=== PATIENT | female | born 1950 | race Caucasian/White ===

== ENCOUNTER 2016-11-01 08:51 | Outpatient (CLI) | payer MEDICARE, OTHER | END 2016-11-01 08:52 | disposition home or self-care (01) | LOC: RT.S 08:51 | PROVIDERS: ATTEND Nurse Practitioner Family | DX: R07.89 Other chest pain (principal) | CPT/HCPCS: 93005 ==

== ENCOUNTER 2016-11-11 10:14 | Outpatient (CLI) | payer MEDICARE, OTHER ==
--- NOTE | 2016-11-12 15:25 | Mammography Report ---
DIGITAL SCREENING MAMMOGRAM: 11/11/2016 CLINICAL INDICATION: A 66-year-old, for screening. COMPARISON: 07/2013, 09/2008, 03/2007. TECHNIQUE: Routine CC and MLO projections were obtained of the breasts. FINDINGS: Parenchymal tissue within both breasts is heterogeneously dense, which may lower the sensi tivity of mammography; however, there are no dominant masses, suspicious microcalcifications, or seco ndary signs of malignancy. In comparison to the previous studies, there are no significant changes. ASSESSMENT: NO MAMMOGRAPHIC EVIDENCE OF MALIGNANCY. NO SIGNIFICANT INTERVAL CHANGES. RECOMMENDATION: Screening mammography is recommended annually. BIRADS category 1 - negative. STANDARD QUALIFYING STATEMENTS 1. This examination was reviewed with the aid of Computed-Aided Detection (CAD). 2. A negative or benign imaging report should not delay biopsy if clinically suspicious findings are present. Consider surgical consultation if warranted. More than 5% of cancers are not identified by i maging. 3. Dense breasts may obscure an underlying neoplasm. JOB #: [id number] EXT JOB #:[id number]
== END 2016-11-11 10:15 | disposition home or self-care (01) ==
LOC: DI.S 10:14
PROVIDERS: ATTEND Nurse Practitioner Family
DX: Z12.31 Encounter for screening mammogram for malignant neoplasm of breast (principal)
CPT/HCPCS: 77067

== ENCOUNTER 2018-08-10 07:49 | Day surgery (SDC) | payer MEDICARE, OTHER ==
[~2018-08-10 07:49] MED LIST: CYCLOPENTOLATE 1% OPHTH DROPS 2 ML ONE; KETOROLAC 0.45% OPHTH DROPS ONE; PHENYLEPHRINE 2.5% OPHTH 2 ML DROPS ONE; PROPARACAINE 0.5% OPHTH DROPS 15 ML ONE
[2018-08-10] MEDS ORDERED: CYCLOPENTOLATE 1% OPHTH DROPS 2 ML RIGHTEYE ONE (08:15)
[2018-08-10] MEDS ORDERED: PHENYLEPHRINE 2.5% OPHTH 2 ML DROPS RIGHTEYE ONE (08:15)
[2018-08-10] MEDS ORDERED: PROPARACAINE 0.5% OPHTH DROPS 15 ML RIGHTEYE ONE (08:15)
[2018-08-10] MEDS ORDERED: KETOROLAC 0.45% OPHTH DROPS RIGHTEYE ONE (08:15)
--- NOTE | 2018-08-10 08:25 | ANESTHESIA ---
Pre-Anesthesia VS, & Labs - Diagnosis Right senile combined cataract - Procedure Right phaco with IOL implant Vital Signs: Temp Pulse Resp BP Pulse Ox 36.3 C L 78 16 152/69 H 97 08/10/18 08:06 08/10/18 08:06 08/10/18 08:06 08/10/18 08:06 08/10/18 08:06 Height 5 ft 2.5 in Weight (kg) 86.2 kg - NPO >8 hours - Is Patient ?: No - Lab Results Lab results reviewed: No Home Medications and Allergies Home Medications: Ambulatory Orders Apixaban [Eliquis] 5 mg PO BID 08/09/18 Atorvastatin [Lipitor] 80 mg PO DAILY 08/09/18 Propranolol HCl [Innopran Xl] 120 mg PO DAILY 08/09/18 metFORMIN [Glucophage] 500 mg PO BIDWM 08/09/18 Apixaban [Eliquis] 5 mg PO BID 08/09/18 Atorvastatin [Lipitor] 80 mg PO DAILY 08/09/18 Propranolol HCl [Innopran Xl] 120 mg PO DAILY 08/09/18 metFORMIN [Glucophage] 500 mg PO BIDWM 08/09/18 Allergies/Adverse Reactions: Allergies Allergy/AdvReac Type Severity Reaction Status Date / Time erythromycin base Allergy Hives Verified 08/09/18 12:45 Sulfa (Sulfonamide Allergy Unknown Verified 08/09/18 12:45 Antibiotics) codeine AdvReac Nausea Verified 08/09/18 12:45 meperidine [From Demerol] AdvReac Nausea Verified 08/09/18 12:45 oxycodone AdvReac Nausea Verified 08/10/18 08:24 propoxyphene [From Darvon] AdvReac Unknown Verified 08/09/18 12:45 Anes History & Medical History - Anesthetic History Anesthesia Complications: reports: No previous complications Family history of Anesthesia Complications: Denies Family history of Malignant Hyperthermia: Denies - Medical History Cardiovascular: reports: High cholesterol Pulmonary: reports: Pneumonia Gastrointestinal: reports: None Urinary: reports: None, Other Neuro: reports: None Musculoskeletal: reports: Osteoarthritis Endocrine/Autoimmune: reports: Type 2 diabetes Blood Disorders: reports: None Skin: reports: None Smoking Status: Current every day smoker (Hx of 50 years of 1 ppd) Psychosocial: reports: No issues indicated - Surgical History General: Cholecystectomy Gynecologic: 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 Orthopedic: Knee replacement Exam General: Alert, Oriented x3 Dental: WNL, Dentures full Upper, Dentures full Lower Mouth Opening: Greater than 4 Fingerbreadths Neck Mobility: Normal Mallampati classification: II Thyromental Distance: 4-6 cm Respiratory: Lungs clear, No respiratory distress Cardiovascular: Regular rate Neurological: Normal speech, Other (History of benign tremors with anxiety) Cognitive Status: Within normal limits Plan Anesthesia Type: MAC Consent for Procedure(s) Verified and Reviewed: Yes Code Status: Attempt Resuscitation ASA classification: 2-Mild systemic disease Is this case an emergency?: No
[2018-08-10] MEDS ORDERED: LACTATED RINGERS 500 ML IV ONE (08:27)
[2018-08-10] MEDS ORDERED: MIDAZOLAM 2 MG/2 ML VIAL IVP ONE (09:00)
[2018-08-10] MEDS ORDERED: fentaNYL 100 MCG/2 ML VIAL IVP ONE (09:00)
[2018-08-10] MEDS ORDERED: BSS/LIDOCAINE/EPINEPHRINE 1 ML SYRINGE IO ONE ×2 (09:08)
[2018-08-10] MEDS ORDERED: VANCOMYCIN OPHTHALMI 8MG/0.8ML 8 MG/0.8 ML SYRINGE IO ONE ×2 (09:08)
[2018-08-10] MEDS ORDERED: CHONDR SULF/HYALURONATE SYRINGE IO ONE (09:08)
[2018-08-10] MEDS ORDERED: TIMOLOL 0.5% OPHTH DROPS OPTH ONE (09:08)
[2018-08-10] MEDS ORDERED: TRIAMCIN/MOXIFLOX OPHTHALMIC 0.6 ML VIAL IO ONE ×2 (09:08)
[2018-08-10] MEDS ORDERED: EPINEPHrine 1 MG/ML AMP IVP ONE (09:08)
[2018-08-10] MEDS ORDERED: BRIMONIDINE 0.2% OPHTH DROPS 5 ML OPTH ONE (09:08)
[2018-08-10 09:55] VITALS: BP 133/79
--- NOTE | 2018-08-10 10:52 | OPERATIVE REPORT ---
DATE OF SERVICE: 08/10/2018 Physician: Noe Godwin MD PREOPERATIVE DIAGNOSIS: Visually significant cataract, right eye. This was her first cataract surge ry. POSTOPERATIVE DIAGNOSIS: Visually significant cataract, right eye. This was her first cataract surg nargis. DESCRIPTION OF PROCEDURE: Phacoemulsification with posterior chamber intraocular lens implant, right eye. SURGEON: Noe Godwin MD ANESTHESIA: Monitored anesthesia care. COMPLICATIONS: None. OPERATIVE INDICATIONS: This is a 68-year-old woman with progressive vision loss in the right eye due to 3+ nuclear sclerotic, 2+ cortical and 3 to 4+ posterior subcapsular cataract. Best corrected vis ual acuity was 20/250, with glare to count fingers at 8 feet in the right eye. Indications for surge ry were overall decrease in vision, difficulty seeing words on the computer screen, difficulty readin g, difficulty seeing words, closed caption or game scores on TV, difficulty seeing street signs, and she does not drive. She was consented at length concerning risks and benefits of cataract surgery, a fter which she expressed a desire to proceed with surgery. OPERATIVE PROCEDURE: The patient was taken to OR #3 and placed under monitored anesthesia care. A s urgical timeout was conducted confirming the correct patient, correct procedure, and correct surgical site. She was given topical anesthesia, then prepped and draped in the usual sterile fashion. The eye was entered at the 12 and 9 o'clock positions. Intracameral Shugarcaine was injected into the an terior chamber, followed by Viscoat. A continuous-tear curvilinear capsulorrhexis was performed. Th e nucleus was hydrodissected and phacoemulsified. The cortex was evacuated using automated infusion and aspiration. Provisc was injected in the capsular bag, and a 26.5 diopter intraocular lens was in serted into the bag. Approximately 0.8 mL of a mixture of triamcinolone, moxifloxacin, and vancomyci n was injected subconjunctivally in the superior quadrant for infection and inflammation prophylaxis. I and A was used to evacuate the viscoelastic material. The eye was inflated to physiologic pressu re using balanced salt solution and found to be watertight. The patient was taken from the operating room in good condition and given postoperative instructions. TD: 08/10/2018 10:16
== END 2018-08-10 07:50 | disposition home or self-care (01) ==
LOC: SDS 07:49
PROVIDERS: ATTEND Ophthalmology
PROC: 08RJ3JZ Replacement of Right Lens with Synthetic Substitute, Percutaneous Approach (ICD-10-PCS; principal; 2018-08-10 09:00)
DX: E11.36 Type 2 diabetes mellitus with diabetic cataract (principal); I48.91 Unspecified atrial fibrillation; I10 Essential (primary) hypertension; F17.210 Nicotine dependence, cigarettes, uncomplicated; R25.1 Tremor, unspecified; E78.00 Pure hypercholesterolemia, unspecified; Z79.01 Long term (current) use of anticoagulants; Z79.84 Long term (current) use of oral hypoglycemic drugs; Z87.01 Personal history of pneumonia (recurrent)
CPT/HCPCS: 66984; A9270; J3490; V2632

== ENCOUNTER 2018-09-14 06:14 | Day surgery (SDC) | payer MEDICARE, OTHER ==
[2018-09-14] MEDS ORDERED: KETOROLAC 0.45% OPHTH DROPS ONE (06:34)
[2018-09-14] MEDS ORDERED: CYCLOPENTOLATE 1% OPHTH DROPS 2 ML ONE (06:34)
[2018-09-14] MEDS ORDERED: PHENYLEPHRINE 2.5% OPHTH 2 ML DROPS ONE (06:34)
[2018-09-14] MEDS ORDERED: PROPARACAINE 0.5% OPHTH DROPS 15 ML ONE (06:35)
[2018-09-14] MEDS ORDERED: CYCLOPENTOLATE 1% OPHTH DROPS 2 ML LEFTEYE ONE (06:40)
[2018-09-14] MEDS ORDERED: PHENYLEPHRINE 2.5% OPHTH 2 ML DROPS LEFTEYE ONE (06:40)
[2018-09-14] MEDS ORDERED: KETOROLAC 0.45% OPHTH DROPS LEFTEYE ONE (06:40)
[2018-09-14] MEDS ORDERED: PROPARACAINE 0.5% OPHTH DROPS 15 ML LEFTEYE ONE ×2 (06:40→07:37)
[2018-09-14] MEDS ORDERED: BRIMONIDINE 0.2% OPHTH DROPS 5 ML ONE (07:04)
[2018-09-14] MEDS ORDERED: TRIAMCIN/MOXIFLOX OPHTHALMIC 0.6 ML VIAL IO ONE ×2 (07:04→07:38)
[2018-09-14] MEDS ORDERED: TIMOLOL 0.5% OPHTH DROPS ONE (07:04)
[2018-09-14] MEDS ORDERED: VANCOMYCIN OPHTHALMI 8MG/0.8ML 8 MG/0.8 ML SYRINGE IO ONE ×2 (07:05→07:37)
[2018-09-14] MEDS ORDERED: BSS/LIDOCAINE/EPINEPHRINE 1 ML SYRINGE ONE (07:05)
--- NOTE | 2018-09-14 07:10 | ANESTHESIA ---
Pre-Anesthesia VS, & Labs - Diagnosis LEft eye senile combined cataract - Procedure Left eye cataract extraction with IOL Vital Signs: Temp Pulse Resp BP Pulse Ox 36.6 C 67 18 136/89 H 97 09/14/18 06:32 09/14/18 06:32 09/14/18 06:32 09/14/18 06:32 09/14/18 06:32 Height 5 ft 2 in Weight (kg) 85 kg - NPO >8 hours - Is Patient ?: No - Lab Results Current Lab Results: Laboratory Tests 09/14/18 06:52: POC Whole Bld Glucose 145 H Home Medications and Allergies Apixaban [Eliquis] 5 mg PO BID 08/09/18 Atorvastatin [Lipitor] 80 mg PO DAILY 08/09/18 Propranolol HCl [Innopran Xl] 120 mg PO DAILY 08/09/18 metFORMIN [Glucophage] 500 mg PO BIDWM 08/09/18 Allergies/Adverse Reactions: Allergies Allergy/AdvReac Type Severity Reaction Status Date / Time erythromycin base Allergy Hives Verified 08/09/18 12:45 Sulfa (Sulfonamide Allergy Unknown Verified 08/09/18 12:45 Antibiotics) codeine AdvReac Nausea Verified 08/09/18 12:45 meperidine [From Demerol] AdvReac Nausea Verified 08/09/18 12:45 oxycodone AdvReac Nausea Verified 08/10/18 08:24 propoxyphene [From Darvon] AdvReac Unknown Verified 08/09/18 12:45 Anes History & Medical History - Anesthetic History Anesthesia Complications: reports: No previous complications - Medical History Cardiovascular: reports: High cholesterol, Atrial fibrillation (patient stated she had an irregular heart beat and was told to be on a blood thinner) Pulmonary: reports: None Gastrointestinal: reports: None Urinary: reports: None Neuro: reports: None Musculoskeletal: reports: Osteoarthritis Endocrine/Autoimmune: reports: Type 2 diabetes Blood Disorders: reports: None Skin: reports: None Smoking Status: Current every day smoker (Hx of 50 years of 1 ppd) Psychosocial: reports: No issues indicated - Surgical History General: Cholecystectomy Gynecologic: 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 Orthopedic: Knee replacement Exam General: Alert, Oriented x3, Cooperative, No acute distress Dental: Dentures full Upper, Dentures full Lower Mouth Openin Fingerbreadth Neck Mobility: Normal Mallampati classification: II Thyromental Distance: 4-6 cm Respiratory: Lungs clear, Normal breath sounds, No respiratory distress, No accessory muscle use Cardiovascular: Regular rate, Normal S1, Normal S2, No murmurs Mental/Cognitive Status: Alert/Oriented X3, Normal for patient Plan Anesthesia Type: MAC Consent for Procedure(s) Verified and Reviewed: Yes Code Status: Attempt Resuscitation ASA classification: 2-Mild systemic disease Is this case an emergency?: No
[2018-09-14] MEDS ORDERED: LACTATED RINGERS 500 ML IV ONE (07:27)
[2018-09-14] MEDS ORDERED: BRIMONIDINE 0.2% OPHTH DROPS 5 ML OPTH ONE (07:36)
[2018-09-14] MEDS ORDERED: CHONDR SULF/HYALURONATE SYRINGE IO ONE (07:36)
[2018-09-14] MEDS ORDERED: EPINEPHrine 1 MG/ML AMP IVP ONE (07:36)
[2018-09-14] MEDS ORDERED: BSS/LIDOCAINE/EPINEPHRINE 1 ML SYRINGE IO ONE (07:37)
[2018-09-14] MEDS ORDERED: TIMOLOL 0.5% OPHTH DROPS OPTH ONE (07:37)
[2018-09-14] MEDS ORDERED: fentaNYL 100 MCG/2 ML VIAL IVP ONE (07:57)
[2018-09-14] MEDS ORDERED: MIDAZOLAM 2 MG/2 ML VIAL IVP ONE (07:57)
[2018-09-14 08:07] VITALS: BP 109/46
--- NOTE | 2018-09-14 08:35 | OPERATIVE REPORT ---
DATE OF SERVICE: 09/14/2018 Physician: Noe Godwin MD PREOPERATIVE DIAGNOSIS: Visually significant cataract, left eye. Cataract surgery was performed on the right eye on 09/09/2018. POSTOPERATIVE DIAGNOSIS: Visually significant cataract, left eye. Cataract surgery was performed on the right eye on 09/09/2018. PROCEDURE: Phacoemulsification with posterior chamber intraocular lens implant, left eye. SURGEON: Noe Godwin MD ANESTHESIA: Monitored anesthesia care. COMPLICATIONS: None. OPERATIVE INDICATIONS: This is a 64-year-old woman with progressive vision loss in the left eye due to 1+ nuclear sclerotic, 1+ cortical and trace posterior subcapsular cataract. Best corrected visual acuity was 20/30 with glare to 20/100 in the left eye. Indications for surgery are overall decrease in vision, difficulty reading, difficulty driving in low light or at night and difficulty with glare and bright lights in any situation. She was consented at length concerning risks and benefits of cataract surgery, after which she expressed a desire to proceed with surgery. OPERATIVE PROCEDURE: Patient was taken into OR #3 and placed under monitored anesthesia care. A surgical timeout was conducted confirming the correct patient, correct procedure, and correct surgical site. She was given topical anesthesia, and then prepped and draped in the usual sterile fashion. The eye was entered at the 6 and 3-o'clock positions. Intracameral Shugarcaine was injected into the anterior chamber, followed by Viscoat. A continuous-tear curvilinear capsulorrhexis was performed. The nucleus was hydrodissected and phacoemulsified. The cortex was evacuated using the automated infusion and aspiration. Provisc was injected in the capsular bag, and a 25.0-diopter intraocular lens was inserted into the bag. Approximately 0.8 mL of a mixture of triamcinolone, moxifloxacin and vancomycin was injected subconjunctivally in the superior quadrant for infection and inflammation prophylaxis. I and A was used to evacuate the viscoelastic material. The eye was inflated to physiologic pressure using balanced salt solution and found to be watertight. The patient was taken from the operating room in good condition and given postoperative instructions. TD: 09/14/2018 08:07 [facility]ENTER[facility]
== END 2018-09-14 06:15 | disposition home or self-care (01) ==
LOC: SDS 06:14
PROVIDERS: ATTEND Ophthalmology
PROC: 08RK3JZ Replacement of Left Lens with Synthetic Substitute, Percutaneous Approach (ICD-10-PCS; principal; 2018-09-14 07:30)
DX: E11.36 Type 2 diabetes mellitus with diabetic cataract (principal); I48.91 Unspecified atrial fibrillation; I10 Essential (primary) hypertension; E78.00 Pure hypercholesterolemia, unspecified; R25.1 Tremor, unspecified; F17.210 Nicotine dependence, cigarettes, uncomplicated; Z96.652 Presence of left artificial knee joint; Z79.01 Long term (current) use of anticoagulants; Z79.84 Long term (current) use of oral hypoglycemic drugs
CPT/HCPCS: 66984; A9270; J3490; J7120; V2632

== ENCOUNTER 2019-02-19 17:31 | Emergency (ER) | payer MEDICARE, OTHER ==
[2019-02-19] MEDS ORDERED: levoFLOXacin 750 MG/150 ML 750 MG/150 ML BAG IV STA (18:04)
--- NOTE | 2019-02-19 18:06 | ED Physician Documentation ---
PD HPI CHEST PAIN - Stated complaint Stated Complaint: CP - Chief complaint Chief Complaint: Cardiac - History obtained from History obtained from: Patient - History of Present Illness Timing - onset: Other (6-year-old woman was in the [place] got [place]. Started with epigastric pain and then made its way to chest pain with a nonproductive cough and she just feels sore and tired all over as well as short of breath. Of note she is to be on some sort of blood thinner, she says it was for anxiety. She is not specifically sure why she was on a blood thinner but seems convinced that it was for anxiety. She is not on it anymore.) Review of Systems Ten Systems: 10 systems reviewed and negative Constitutional: reports: Chills, Fatigue. denies: Fever Throat: denies: Sore throat Cardiac: reports: Chest pain / pressure. denies: Palpitations, Pedal edema, Calf pain Respiratory: reports: Dyspnea, Cough PD PAST MEDICAL HISTORY - Past Medical History Cardiovascular: High cholesterol, Atrial fibrillation (patient stated she had an irregular heart beat and was told to be on a blood thinner) Respiratory: None Neuro: None Endocrine/Autoimmune: Type 2 diabetes GI: None : None HEENT: None Psych: None Musculoskeletal: Osteoarthritis Derm: None - Past Surgical History General: Cholecystectomy Ortho: Knee replacement /[employer]: 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 - Present Medications Home Medications: Ambulatory Orders Medication Instructions Recorded Confirmed Atorvastatin [Lipitor] 80 mg PO DAILY 08/09/18 09/14/18 Propranolol HCl [Innopran Xl] 120 mg PO DAILY 08/09/18 09/14/18 metFORMIN [Glucophage] 500 mg PO BIDWM 08/09/18 09/14/18 Levofloxacin [Levaquin] 750 mg PO DAILY #7 tablet 02/19/19 - Allergies Allergies/Adverse Reactions: Allergies Allergy/AdvReac Type Severity Reaction Status Date / Time erythromycin base Allergy Hives Verified 02/19/19 17:40 Sulfa (Sulfonamide Allergy Unknown Verified 02/19/19 17:40 Antibiotics) codeine AdvReac Nausea Verified 02/19/19 17:40 meperidine [From Demerol] AdvReac Nausea Verified 02/19/19 17:40 oxycodone AdvReac Nausea Verified 02/19/19 17:40 propoxyphene [From Darvon] AdvReac Unknown Verified 02/19/19 17:40 - Social History Smoking Status: Current every day smoker (Hx of 50 years of 1 ppd) PD ED PE NORMAL - Vitals Vital signs reviewed: Yes - General General: Alert and oriented X 3, No acute distress - HEENT HEENT: PERRL, EOMI - Neck Neck: Supple, no meningeal sign, No bony TTP - Cardiac Cardiac: RRR, No murmur - Respiratory Respiratory: No respiratory distress, Other (Diminished throughout without focal findings, nonlabored) - Abdomen Abdomen: Non tender - Extremities Extremities: No edema, No calf tenderness / cord - Neuro Neuro: Alert and oriented X 3, Normal speech Results - Vitals Vitals: Vital Signs - 24 hr 02/19/19 02/19/19 02/19/19 17:38 18:04 18:14 Temperature 37.1 C 37 C Heart Rate 90 89 77 Respiratory 20 20 24 Rate Blood Pressure 122/58 L 121/62 102/64 O2 Saturation 90 L 93 94 02/19/19 18:34 Temperature Heart Rate 78 Respiratory 22 Rate Blood Pressure 96/52 L O2 Saturation 93 Oxygen O2 Source Room air - EKG (time done) 1741 Rate: Rate (enter#) (86) Rhythm: NSR [place]: Normal Intervals: Normal SC QRS: Normal Ischemia: Non specific changes (Minimal, submillimeter lateral ST depression without other reciprocal changes, no ST elevation.) - Labs Labs: Laboratory Tests 02/19/19 02/19/19 02/19/19 18:11 18:15 18:15 WBC 9.7 RBC 4.67 Hgb 14.2 Hct 42.7 MCV 91.4 MCH 30.4 MCHC 33.3 RDW 14.4 Plt Count 167 MPV 10.8 Neut # (Auto) 8.0 H Lymph # (Auto) 0.8 L [place] # (Auto) 0.4 Eos # (Auto) 0.0 Baso # (Auto) 0.1 Absolute Nucleated RBC 0.00 Nucleated RBC % 0.0 Sodium 143 Potassium 3.2 L Chloride 103 Carbon Dioxide 25 Anion Gap 15.0 H BUN 39 H Creatinine 1.8 H Estimated GFR (MDRD) 28 L Glucose 164 H Lactic Acid 1.2 Calcium 9.2 Total Bilirubin 1.4 H AST 50 H ALT 40 Alkaline Phosphatase 97 Total Protein 7.4 Albumin 3.0 L Globulin 4.4 H Albumin/Globulin Ratio 0.7 L Lipase 32 - Rads (name of study) CXR Radiology: EMP read contemporaneously CT PA Radiology: EMP read contemporaneously PD MEDICAL DECISION MAKING - ED course ED course: 69-year-old woman who presents with chest pain, cough, shortness of breath. Initial x-ray noted, was worried this might be a wedge so was followed with CT given the history of noncompliance with anticoagulation for unclear reasons and recent travel, but lobar pneumonia was confirmed treated with levofloxacin. 2 L of fluids. Departure - Departure Disposition: Home, Self Care Clinical Impression: Pneumonia Qualifiers: Pneumonia type: due to unspecified organism Laterality: right Lung location: upper lobe of lung Qualified Code(s): J18.1 - Lobar pneumonia, unspecified organism Condition: Good Record reviewed to determine appropriate education?: Yes Instructions: ED Pneumonia Adult Prescriptions: Levofloxacin [Levaquin] 750 mg PO DAILY #7 tablet Comments: Follow-up with your doctor the end of the week, but drink plenty of fluids, return for new or worsening symptoms.
[2019-02-19 18:26] LABS: BASOPHILS # (AUTO) 0.1 10^3/uL (0.0-0.1); BASOPHILS % (AUTO) 0.5 %; EOSINOPHILS % (AUTO) 0.1 %; HGB - HEMOGLOBIN 14.2 g/dL (12.0-16.0); LYMPHOCYTES # (AUTO) 0.8 10^3/uL (1.5-3.5); LYMPHOCYTES % (AUTO) 8.1 %; MEAN CORPUSCULAR HEMOGLOBIN 30.4 pg (27.0-31.0); MEAN CORPUSCULAR HGB CONC 33.3 g/dL (32.0-36.0); MEAN CORPUSCULAR VOLUME 91.4 fL (81.0-99.0); MEAN PLATELET VOLUME 10.8 fL (7.9-10.8); MONOCYTES # (AUTO) 0.4 10^3/uL (0.0-1.0); MONOCYTES % (AUTO) 3.9 %; NEUTROPHILS % (AUTO) 82.8 %; PLT - PLATELET COUNT 167 10^3/uL (130-450); RED BLOOD COUNT 4.67 10^6/uL (4.20-5.40); RED CELL DISTRIBUTION WIDTH 14.4 % (12.0-15.0); WHITE BLOOD COUNT 9.7 x10^3/uL (4.8-10.8)
[2019-02-19 18:35] LABS: ALBUMIN/GLOBULIN RATIO 0.7 (1.0-2.2); BILIRUBIN,TOTAL 1.4 mg/dL (0.2-1.0); CALCIUM 9.2 mg/dL (8.5-10.3); CREATININE 1.8 mg/dL (0.4-1.0); TOTAL PROTEIN 7.4 g/dL (6.7-8.2)
--- NOTE | 2019-02-19 18:35 | XRAY Report ---
Reason: chest pain Procedure Date: 02/19/2019 Accession Number: [id number] / [id number] Procedure: XR - Chest 1 View X-Ray CPT Code: 70915 Final Report FULL RESULT: EXAM: CHEST RADIOGRAPHY EXAM DATE: 02/19/2019 05:59 PM. CLINICAL HISTORY: Chest pain. COMPARISON: 10/29/2013 3:47 PM. TECHNIQUE: 1 view. FINDINGS: Lungs/Pleura: There is new airspace disease in the lateral right midlung. There is a calcified structure overlying the lower left hilum which is unchanged. Right midlung calcification unchanged. Lung volumes are normal. Negative for pneumothorax. Mediastinum: The heart size is normal. There is aortic atherosclerotic calcification. Other: None. IMPRESSION: 1. New peripheral consolidation in right midlung. Suspicious for pneumonia. RADIA
[2019-02-19] MEDS ORDERED: IOVERSOL 320 100 ML VIAL IVP ONE ×2 (18:39→19:07)
[2019-02-19] MEDS ORDERED: SODIUM CHLORIDE 0.9% 1,000 ML IV ONE (18:45)
[2019-02-19] MEDS ORDERED: LACTATED RINGERS 1,000 ML IV STA (19:28)
--- NOTE | 2019-02-19 19:46 | CT Report ---
Reason: dyspnea Procedure Date: 02/19/2019 Accession Number: [id number] / [id number] Procedure: CT - ANGIO CHEST W/WO CPT Code: Final Report FULL RESULT: EXAM: CT ANGIOGRAM CHEST EXAM DATE: 02/19/2019 07:02 PM. CLINICAL HISTORY: Dyspnea. A value for pulmonary embolism. COMPARISON: CHEST 1 VIEW 02/19/2019 5:49 PM 10/29/2013 3:47 PM. TECHNIQUE: Routine helical imaging was performed through the chest in the pulmonary arterial phase. IV Contrast: 80 cc Optiray 320. Reconstructions: Coronal 3-D MIP reconstructions.Sagittal and coronal. In accordance with CT protocol optimization, one or more of the following dose reduction techniques were utilized for this exam: automated exposure control, adjustment of mA and/or KV based on patient size, or use of iterative reconstructive technique. FINDINGS: Diagnostic quality: Suboptimal secondary to lower lobe motion artifact. Pulmonary embolism: No pulmonary embolism to the segmental level. Right heart strain: None Pulmonary arteries: Normal in caliber. Heart: Unremarkable Aorta: Normal in caliber with moderate atherosclerosis. Central airways: Right upper lobe air bronchograms with bronchial wall thickening. Lung parenchyma: Right upper lobe consolidation. Scattered calcified granuloma seen in the bilateral lower lobes. Pleural effusion: None Pneumothorax: None Adenopathy: Right hilar lymphadenopathy. Imaged abdomen: Cholecystectomy. Sidewalls: Unremarkable Bones: No suspicious osseous lesions. IMPRESSION: 1. Suboptimal secondary to lower lobe motion artifact. 2. No pulmonary embolism to the segmental level. 3. Again large focus of consolidation with air bronchograms in the right upper lobe and right hilar lymphadenopathy consistent with lobar pneumonia. RADIA
[2019-02-19 22:21] VITALS: BP 122/58
== END 2019-02-19 22:28 | disposition home or self-care (01) ==
LOC: ED 17:31
DX: J18.1 Lobar pneumonia, unspecified organism (principal); E78.00 Pure hypercholesterolemia, unspecified; E11.8 Type 2 diabetes mellitus with unspecified complications; Z79.84 Long term (current) use of oral hypoglycemic drugs; Z96.659 Presence of unspecified artificial knee joint; F17.200 Nicotine dependence, unspecified, uncomplicated
CPT/HCPCS: 36415; 71045; 71275; 80053; 83605; 83690; 85025; 87040; 87077; 87181; 93005; 96361; 96365; 99283; 99284; J7120; Q9967

== ENCOUNTER 2019-04-02 10:24 | Outpatient (CLI) | payer MEDICARE, OTHER ==
--- NOTE | 2019-04-03 10:14 | XRAY Report ---
Reason: LOBAR PNEUMONIA, UNSPECIFIED ORGANISM Procedure Date: 04/02/2019 Accession Number: [id number] / [id number] Procedure: XRS - Chest 2 View X-Ray CPT Code: 60496 Final Report FULL RESULT: EXAM: CHEST RADIOGRAPHY EXAM DATE: 04/02/2019 10:35 AM. CLINICAL HISTORY: LOBAR PNEUMONIA, UNSPECIFIED ORGANISM. COMPARISON: CHEST 1 VIEW 02/19/2019 5:49 PM CHEST ANGIO 02/19/2019 6:55 PM. TECHNIQUE: 2 views. FINDINGS: Lungs/Pleura: Interval resolution of right midlung opacity. No new focal opacities. Stable pulmonary granulomas, largest in left perihilar region. No pleural effusion. No pneumothorax. Normal volumes. Mediastinum: Heart and mediastinal contours are unremarkable. Mild atherosclerosis at aortic arch. Other: None. IMPRESSION: 1. Resolution of consolidation in right midlung compared to prior imaging of 02/19/2019. No new focal airspace disease. 2. Stable pulmonary granulomas. RADIA
== END 2019-04-02 10:25 | disposition home or self-care (01) ==
LOC: DI.S 10:24
PROVIDERS: ATTEND Nurse Practitioner Family
DX: J18.1 Lobar pneumonia, unspecified organism (principal)
CPT/HCPCS: 71046

== ENCOUNTER 2020-01-24 22:27 | Emergency (ER) | payer MEDICARE, OTHER ==
--- NOTE | 2020-01-24 22:32 | ED Physician Documentation ---
History of Present Illness - Stated complaint Stated Complaint: CHEST PX - History obtained from History obtained from: Patient - Additonal information Additional information: Patient is a 70-year-old female presents with left arm pain as well as bilateral leg pain. Patient is concerned that she could have a deep vein thrombosis denies any history of PE or DVT denies fevers or hemoptysis. She does have a history of hypertension hyperlipidemia and diabetes.Denies any history of HI or stroke. Review of Systems Constitutional: reports: Reviewed and negative Eyes: reports: Reviewed and negative Ears: reports: Reviewed and negative Nose: reports: Reviewed and negative Throat: reports: Reviewed and negative Cardiac: reports: Other (Left arm pain) Respiratory: reports: Reviewed and negative GI: reports: Reviewed and negative : reports: Reviewed and negative Skin: reports: Reviewed and negative Musculoskeletal: reports: Other (Bilateral leg cramping) Neurologic: reports: Reviewed and negative Psychiatric: reports: Reviewed and negative Endocrine: reports: Reviewed and negative Immunocompromised: reports: Reviewed and negative PD PAST MEDICAL HISTORY - Past Medical History Cardiovascular: High cholesterol, Atrial fibrillation (patient stated she had an irregular heart beat and was told to be on a blood thinner) Respiratory: None Neuro: None Endocrine/Autoimmune: Type 2 diabetes GI: None : None HEENT: None Psych: None Musculoskeletal: Osteoarthritis Derm: None - Past Surgical History General: Cholecystectomy 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: 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 - Present Medications Home Medications: Ambulatory Orders Medication Instructions Recorded Confirmed Atorvastatin [Lipitor] 80 mg PO DAILY 08/09/18 09/14/18 Propranolol HCl [Innopran Xl] 120 mg PO DAILY 08/09/18 01/25/20 metFORMIN [Glucophage] 500 mg PO BIDWM 08/09/18 01/25/20 levoFLOXacin [Levaquin] 750 mg PO DAILY #7 tablet 02/19/19 Benzonatate 100 mg PO DAILY 01/25/20 01/25/20 Lisinopril [Prinivil] 5 mg PO DAILY 01/25/20 01/25/20 Magnesium Oxide 400 mg PO DAILY 01/25/20 01/25/20 - Allergies Allergies/Adverse Reactions: Allergies Allergy/AdvReac Type Severity Reaction Status Date / Time erythromycin base Allergy Hives Verified 01/24/20 22:37 Sulfa (Sulfonamide Allergy Unknown Verified 01/24/20 22:37 Antibiotics) codeine AdvReac Nausea Verified 01/24/20 22:37 meperidine [From Demerol] AdvReac Nausea Verified 01/24/20 22:37 oxycodone AdvReac Nausea Verified 01/24/20 22:37 propoxyphene [From Darvon] AdvReac Unknown Verified 01/24/20 22:37 - Social History Does the pt smoke?: Yes Smoking Status: Current every day smoker (Hx of 50 years of 1 ppd) Does the pt have substance abuse?: No - Immunizations Immunizations are current?: Yes - POLST Patient has POLST: No PD ED PE NORMAL - Vitals Vital signs reviewed: Yes - General General: Alert and oriented X 3, No acute distress, Well developed/nourished - HEENT HEENT: Atraumatic, PERRL, Ears normal, Moist mucous membranes, Pharynx benign, Dentition benign - Neck Neck: Supple, no meningeal sign, No adenopathy, Thyroid normal, No JVD, No bruit - Cardiac Cardiac: RRR, No murmur, No gallop, Strong equal pulses - Respiratory Respiratory: No respiratory distress, Clear bilaterally - Abdomen Abdomen: Normal bowel sounds, Soft, Non tender, Non distended, No organomegaly - Female Female : Deferred - Rectal Rectal: Deferred - Back Back: No CVA TTP, No spinal TTP - Derm Derm: Normal color, Warm and dry, No rash - Extremities Extremities: No deformity, Normal ROM s pain, No edema, No calf tenderness / cord, Other (Both legs are diffusely tender to palpation however compartments are soft negative for edema negative Homans sign no leg length discrepancy no crepitus or rashes or lesions noted) - Neuro Neuro: Alert and oriented X 3, 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 2-12 intact, No motor deficit, No sensory deficit, Normal speech - Psych Psych: Normal mood, Normal affect Results - Vitals Vitals: Vital Signs - 24 hr 01/24/20 01/25/20 01/25/20 22:30 00:32 02:33 Temperature 36.7 C Heart Rate 76 74 63 Respiratory 18 20 18 Rate Blood Pressure 179/107 H 146/62 H O2 Saturation 98 96 95 01/25/20 01/25/20 04:35 05:29 Temperature Heart Rate 52 L 48 L Respiratory 16 16 Rate Blood Pressure 99/63 116/43 L O2 Saturation 99 96 Oxygen O2 Source Room air - EKG (time done) 22:31 Rate: Other (no stemi) 00:30 Rate: Other (NO STEMI) - Labs Labs: Laboratory Tests 01/24/20 01/24/20 01/24/20 23:26 23:26 23:26 WBC 7.6 RBC 4.34 Hgb 13.5 Hct 40.8 MCV 94.0 MCH 31.1 H MCHC 33.1 RDW 13.6 Plt Count 161 MPV 10.5 Neut # (Auto) 4.2 Lymph # (Auto) 2.4 [place] # (Auto) 0.6 Eos # (Auto) 0.2 Baso # (Auto) 0.1 Absolute Nucleated RBC 0.00 Nucleated RBC % 0.0 PT 10.8 INR 1.0 APTT 25.4 D-Dimer 382.4 H Anti-Xa Level Sodium 139 Potassium 4.1 Chloride 104 Carbon Dioxide 27 Anion Gap 8.0 BUN 23 H Creatinine 0.8 Estimated GFR (MDRD) 71 L Glucose 154 H Calcium 8.6 Total Bilirubin 0.7 AST 23 ALT 24 Alkaline Phosphatase 110 Total Creatine Kinase 51 Troponin I High Sens B-Natriuretic Peptide Total Protein 6.1 L Albumin 3.5 Globulin 2.6 Albumin/Globulin Ratio 1.3 Lipase 37 Urine Color Urine Clarity Urine pH Ur Specific [place] Urine Protein Urine Glucose (UA) Urine Ketones Urine Occult Blood Urine Nitrite Urine Bilirubin Urine Urobilinogen Ur Leukocyte Esterase Urine RBC Urine WBC Ur Squamous Epith Cells Urine Bacteria Ur Microscopic Review Urine Culture Comments Ethyl Alcohol < 5.0 01/24/20 01/24/20 01/25/20 23:26 23:26 00:04 WBC RBC Hgb Hct MCV MCH MCHC RDW Plt Count MPV Neut # (Auto) Lymph # (Auto) [place] # (Auto) Eos # (Auto) Baso # (Auto) Absolute Nucleated RBC Nucleated RBC % PT INR APTT D-Dimer Anti-Xa Level Sodium Potassium Chloride Carbon Dioxide Anion Gap BUN Creatinine Estimated GFR (MDRD) Glucose Calcium Total Bilirubin AST ALT Alkaline Phosphatase Total Creatine Kinase Troponin I High Sens 68.7 H* B-Natriuretic Peptide 34 Total Protein Albumin Globulin Albumin/Globulin Ratio Lipase Urine Color YELLOW Urine Clarity HAZY Urine pH 5.0 Ur Specific [place] >=1.030 H Urine Protein NEGATIVE Urine Glucose (UA) NEGATIVE Urine Ketones TRACE Urine Occult Blood TRACE-INTA Urine Nitrite POSITIVE H Urine Bilirubin NEGATIVE Urine Urobilinogen 0.2 (NORMAL) Ur Leukocyte Esterase TRACE H Urine RBC 6-10 H Urine WBC 6-10 H Ur Squamous Epith Cells MOD Squamous H Urine Bacteria Moderate H Ur Microscopic Review INDICATED Urine Culture Comments NOT INDICATED Ethyl Alcohol 01/25/20 01/25/20 00:31 04:15 WBC RBC Hgb Hct MCV MCH MCHC RDW Plt Count MPV Neut # (Auto) Lymph # (Auto) [place] # (Auto) Eos # (Auto) Baso # (Auto) Absolute Nucleated RBC Nucleated RBC % PT INR APTT D-Dimer Anti-Xa Level 1.2 H* Sodium Potassium Chloride Carbon Dioxide Anion Gap BUN Creatinine Estimated GFR (MDRD) Glucose Calcium Total Bilirubin AST ALT Alkaline Phosphatase Total Creatine Kinase Troponin I High Sens 67.9 H* B-Natriuretic Peptide Total Protein Albumin Globulin Albumin/Globulin Ratio Lipase Urine Color Urine Clarity Urine pH Ur Specific [place] Urine Protein Urine Glucose (UA) Urine Ketones Urine Occult Blood Urine Nitrite Urine Bilirubin Urine Urobilinogen Ur Leukocyte Esterase Urine RBC Urine WBC Ur Squamous Epith Cells Urine Bacteria Ur Microscopic Review Urine Culture Comments Ethyl Alcohol PD MEDICAL DECISION MAKING - ED course Complexity details: reviewed old records, reviewed results, re-evaluated patient, considered differential (acs, pe, nstemi), d/w patient, d/w family, d/w job service consultant (dr. barba hospitalist. unable to accept here unable to stress and no cardiology.) ED course: ekg shows no stemis. elevated troponin x 2. left arm pain. htn. hld.diabetic. heparin ordered bolus and drip. unable to admit here at [facility]. contacte d multiple hospitals for transfer no beds available. patient signed out at shift change to dr chantale martinez. - Consults Consults: Discussed case with (dr. meng, limousine rental clerk. at [facility], will accept. ) Departure - Departure Disposition: 02 Transfer Acute Care Hosp Clinical Impression: NSTEMI (non-ST elevated myocardial infarction) Condition: Stable
[2020-01-24] MEDS ORDERED: SODIUM CHLORIDE 0.9% 1,000 ML IV STA (22:35)
[2020-01-24] MEDS ORDERED: ASPIRIN 325 MG TABLET PO STA (22:35)
[2020-01-24] MEDS ORDERED: ONDANSETRON 4 MG/2 ML VIAL IVP STA (22:35)
[2020-01-24] MEDS ORDERED: NITROGLYCERIN SL 0.4 MG TABLET SL PRN (22:35)
[2020-01-24] MEDS ORDERED: MORPHINE 2 MG/ML CARPUJECT IVP STA (22:35)
[2020-01-24 23:29] LABS: BASOPHILS # (AUTO) 0.1 10^3/uL (0.0-0.1); BASOPHILS % (AUTO) 0.8 %; EOSINOPHILS # (AUTO) 0.2 10^3/uL (0.0-0.7); HGB - HEMOGLOBIN 13.5 g/dL (12.0-16.0); LYMPHOCYTES # (AUTO) 2.4 10^3/uL (1.5-3.5); LYMPHOCYTES % (AUTO) 31.5 %; MEAN CORPUSCULAR HEMOGLOBIN 31.1 pg (27.0-31.0); MEAN CORPUSCULAR HGB CONC 33.1 g/dL (32.0-36.0); MEAN PLATELET VOLUME 10.5 fL (7.9-10.8); MONOCYTES # (AUTO) 0.6 10^3/uL (0.0-1.0); MONOCYTES % (AUTO) 8.3 %; NEUTROPHILS # (AUTO) 4.2 10^3/uL (1.5-6.6); NEUTROPHILS % (AUTO) 55.6 %; PLT - PLATELET COUNT 161 10^3/uL (130-450); RED BLOOD COUNT 4.34 10^6/uL (4.20-5.40); RED CELL DISTRIBUTION WIDTH 13.6 % (12.0-15.0); WHITE BLOOD COUNT 7.6 x10^3/uL (4.8-10.8)
[2020-01-24 23:35] LABS: PT - PROTHROMBIN TIME 10.8 secs (9.9-12.6)
[2020-01-24 23:42] LABS: ALBUMIN 3.5 g/dL (3.2-5.5); ALBUMIN/GLOBULIN RATIO 1.3 (1.0-2.2); ALKALINE PHOSPHATASE 110 IU/L (42-121); ALT ALANINE AMINOTRANSFERASE 24 IU/L (10-60); AST ASPARTATE AMINOTRANSFERASE 23 IU/L (10-42); BILIRUBIN,TOTAL 0.7 mg/dL (0.2-1.0); BUN - BLOOD UREA NITROGEN 23 mg/dL (6-20); CALCIUM 8.6 mg/dL (8.5-10.3); CARBON DIOXIDE - CO2 27 mmol/L (21-32); CHLORIDE 104 mmol/L (101-111); CK- CREATINE KINASE 51 IU/L (22-269); CREATININE 0.8 mg/dL (0.4-1.0); GLUCOSE 154 mg/dL (70-100); LIPASE 37 U/L (22-51); SODIUM 139 mmol/L (135-145); TOTAL PROTEIN 6.1 g/dL (6.7-8.2)
[2020-01-24 23:44] LABS: PARTIAL THROMBOPLASTIN TIME 25.4 secs (24.9-33.3)
[2020-01-24 23:51] LABS: D-DIMER 382.4 ng/mL (200.0-255.0)
[2020-01-25 00:21] LABS: BILIRUBIN,URINE NEGATIVE (NEGATIVE); GLUCOSE, URINE (UA) NEGATIVE (NEGATIVE); KETONES,URINE (UA) TRACE mg/dL (NEGATIVE); LEUKOCYTE ESTERASE, URINE TRACE (NEGATIVE); NITRITE,URINE POSITIVE (NEGATIVE); OCCULT BLOOD,URINE TRACE-INTA (NEGATIVE); PROTEIN,URINE NEGATIVE (NEGATIVE); UROBILINOGEN,URINE 0.2 (NORMAL) E.U./dL (NORMAL)
[2020-01-25 00:22] LABS: CLARITY,URINE HAZY (CLEAR)
[2020-01-25] MEDS ORDERED: ONDANSETRON 4 MG/2 ML VIAL IVP STA (00:23)
[2020-01-25] MEDS ORDERED: MORPHINE 2 MG/ML CARPUJECT IVP STA (00:23)
[2020-01-25 00:28] LABS: BACTERIA,URINE Moderate /HPF (None Seen); SQUAMOUS EPITHELIAL CELL,UR MOD Squamous (<= Few)
[2020-01-25] MEDS ORDERED: IOVERSOL 320 100 ML VIAL IVP ONE ×2 (02:02→02:28)
[2020-01-25] MEDS ORDERED: cefTRIAXone 1 GM VIAL IVP STA (02:17)
[2020-01-25] MEDS ORDERED: diazePAM INJ 5 MG/ML SYRINGE IVP STA (02:34)
[2020-01-25] MEDS ORDERED: HEPARIN 25000UNITS/500ML (D5W) 25,000 UNIT/500 ML BAG IV SCH (04:00)
[2020-01-25 07:30] VITALS: BP 118/54
--- NOTE | 2020-01-25 07:39 | CT Report ---
PROCEDURE: ANGIO CHEST W/WO INDICATIONS: cp/sob elevated d dimer CONTRAST: IV CONTRAST: Optiray 320 ml: 100 PO CONTRAST: *NO PO CONTRAST TECHNIQUE: After the administration of intravenous contrast, 2 mm thick sections acquired from the pulmonary api marylou to the posterior costophrenic angles. 3-dimensional maximum intensity projection (MIP) coronal a nd sagittal reformats were then acquired through the thorax. For radiation dose reduction, the follow ing was used: automated exposure control, adjustment of mA and/or kV according to patient size. COMPARISON: Chest x-ray 01/24/2020 FINDINGS: Image quality: Excellent. Pulmonary arteries: Pulmonary arteries are normal in size, and demonstrate no intraluminal filling d efects to suggest central pulmonary embolism. Lungs and pleura: Calcified granulomas present.. No pleural effusions or pneumothorax. Central and peripheral airways are patent. Atelectasis is present within the right middle lobe. Mediastinum: Heart size is normal, without pericardial effusion. No mediastinal or hilar adenopathy . Thoracic aorta is normal in caliber and enhancement. Esophagus is normal in caliber, without hiat al hernia. Bones and chest wall: No suspicious bony lesions. Ribs and thoracic spine appear intact throughout. The thyroid is normal. No axillary or supraclavicular adenopathy. Abdomen: There is incompletely visualized fusiform dilation of the infrarenal abdominal aorta measuri ng approximately 36 mm. Visualized upper abdominal solid organs appear normal in the early arterial p hase of enhancement. IMPRESSION: 1. No pulmonary embolism. 2. Right middle lobe atelectasis. 3. Incompletely visualized fusiform infrarenal abdominal aortic aneurysm. The above findings are concordant with preliminary report. Reviewed by: Mable Finney MD on 01/25/2020 7:37 AM PDT Approved by: Mable Finney MD on 01/25/2020 7:37 AM PDT Station ID: [id number]
--- NOTE | 2020-01-25 08:27 | XRAY Report ---
PROCEDURE: Chest 1 View X-Ray INDICATIONS: Chest pain TECHNIQUE: One view of the chest was acquired. COMPARISON: 01/24/2020 and 04/02/2019 FINDINGS: Surgical changes and devices: None. Lungs and pleura: No pleural effusions or pneumothorax. Lungs are clear. Calcified granulomas are s table. Mediastinum: Mediastinal contours appear normal. Heart size is normal. Bones and chest wall: No suspicious bony lesions. Overlying soft tissues appear unremarkable. IMPRESSION: No acute cardiopulmonary disease process. Reviewed by: Jennifer Davidson MD, PhD on 01/25/2020 8:25 AM PDT Approved by: Jennifer Davidson MD, PhD on 01/25/2020 8:25 AM PDT Station ID: [id number]
--- NOTE | 2020-01-25 08:31 | Ultrasound Report ---
PROCEDURE: Duplex Ext Veins Bilateral INDICATIONS: Bilateral lower extremity pain and swelling x1 month. TECHNIQUE: Real-time imaging, as well as color and pulse Doppler interrogation, were performed of the deep veins of both legs from the inguinal ligament to the popliteal fossa. COMPARISON: None FINDINGS: The deep veins of the right and left lower extremities are normally compressible, and free of intraluminal thrombus. Color and pulse Doppler demonstrate normal phasic intravascular flow. Th ere is normal augmentation response to distal compression maneuver. IMPRESSION: No evidence of deep vein thrombosis involving either the right or left lower extremities. Reviewed by: Jennifer Davidson MD, PhD on 01/25/2020 8:30 AM PDT Approved by: Jennifer Davidson MD, PhD on 01/25/2020 8:30 AM PDT Station ID: [id number]
--- NOTE | 2020-01-25 08:37 | ED Physician Documentation ---
ED Addendum - Addendum Addendum: 01/25/20 08:36 patient with chest pain and NSTEMI leaves the hospital via ambulance to go to [place] for care. No incident at the time of departure.
== END 2020-01-25 08:29 | disposition short-term general hospital (02) ==
LOC: ED 22:27
DX: I21.4 Non-ST elevation (NSTEMI) myocardial infarction (principal); M79.604 Pain in right leg; M79.605 Pain in left leg; I71.4 Abdominal aortic aneurysm, without rupture; I10 Essential (primary) hypertension; E78.5 Hyperlipidemia, unspecified; E11.9 Type 2 diabetes mellitus without complications; Z79.84 Long term (current) use of oral hypoglycemic drugs; F17.210 Nicotine dependence, cigarettes, uncomplicated
CPT/HCPCS: 36415; 71045; 71275; 80053; 81001; 82550; 83690; 83880; 84484; 85025; 85379; 85520; 85610; 85730; 93005; 93970; 96374; 96375; 96376; 99283; 99285; A9270; Q9967; 80320; 81003; 87086

== ENCOUNTER 2020-01-25 08:39 | Outpatient (CLI) | payer MEDICARE, OTHER | END 2020-01-25 08:40 | disposition short-term general hospital (02) | LOC: EMS 08:39 | PROVIDERS: ATTEND Surgery | DX: I21.4 Non-ST elevation (NSTEMI) myocardial infarction (principal) | CPT/HCPCS: A0425; A0426 ==

== ENCOUNTER 2020-02-01 00:33 | Emergency (ER) | payer MEDICARE, OTHER ==
[2020-02-01] MEDS ORDERED: KETOROLAC 60 MG/2 ML VIAL IM STA (01:03)
[2020-02-01] MEDS ORDERED: HYDROmorphone 1 MG/ML CARPUJECT IM STA (01:03)
--- NOTE | 2020-02-01 01:30 | ED Physician Documentation ---
History of Present Illness - Stated complaint Stated Complaint: BODY PX - Chief complaint Chief Complaint: General - History obtained from History obtained from: Patient, Family - Additonal information Additional information: Patient presents the emergency department chief complaint of whole body pain. She states this is been going on for the last month and a half or so and that her primary care physician recently diagnosed her with fibromyalgia. Patient is on gabapentin for this, but has only had 1 dose and states it did not do enough for her pain so she is come here. Patient denies shortness of breath, nausea or vomiting, or fevers. No cough or chills. She denies any other specific complaints. Review of Systems Ten Systems: 10 systems reviewed and negative Constitutional: reports: Reviewed and negative Eyes: reports: Reviewed and negative Ears: reports: Reviewed and negative Nose: reports: Reviewed and negative Throat: reports: Reviewed and negative Cardiac: reports: Reviewed and negative Respiratory: reports: Reviewed and negative GI: reports: Reviewed and negative : reports: Reviewed and negative Skin: reports: Reviewed and negative Musculoskeletal: reports: Neck pain, Back pain, Extremity pain, Joint pain Neurologic: reports: Reviewed and negative Psychiatric: reports: Reviewed and negative Endocrine: reports: Reviewed and negative Immunocompromised: reports: Reviewed and negative PD PAST MEDICAL HISTORY - Past Medical History Cardiovascular: High cholesterol, Atrial fibrillation Respiratory: None Neuro: None Endocrine/Autoimmune: Type 2 diabetes GI: None : None HEENT: None Psych: None Musculoskeletal: Osteoarthritis Derm: None - Past Surgical History General: Cholecystectomy Ortho: Knee replacement /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 - Present Medications Home Medications: Ambulatory Orders Medication Instructions Recorded Confirmed Atorvastatin [Lipitor] 80 mg PO DAILY 08/09/18 09/14/18 Propranolol HCl [Innopran Xl] 120 mg PO DAILY 08/09/18 01/25/20 metFORMIN [Glucophage] 500 mg PO BIDWM 08/09/18 01/25/20 levoFLOXacin [Levaquin] 750 mg PO DAILY #7 tablet 02/19/19 Benzonatate 100 mg PO DAILY 01/25/20 01/25/20 Lisinopril [Prinivil] 5 mg PO DAILY 01/25/20 01/25/20 Magnesium Oxide 400 mg PO DAILY 01/25/20 01/25/20 - Allergies Allergies/Adverse Reactions: Allergies Allergy/AdvReac Type Severity Reaction Status Date / Time erythromycin base Allergy Hives Verified 02/01/20 00:48 Sulfa (Sulfonamide Allergy Unknown Verified 02/01/20 00:48 Antibiotics) codeine AdvReac Nausea Verified 02/01/20 00:48 meperidine [From Demerol] AdvReac Nausea Verified 02/01/20 00:48 oxycodone AdvReac Nausea Verified 02/01/20 00:48 propoxyphene [From Darvon] AdvReac Unknown Verified 02/01/20 00:48 - Social History Does the pt smoke?: Yes Smoking Status: Current every day smoker Does the pt have substance abuse?: No - Immunizations Immunizations are current?: Yes - POLST Patient has POLST: No PD ED PE NORMAL - Vitals Vital signs reviewed: Yes - General General: Alert and oriented X 3, Well developed/nourished, Other (Patient is moaning and rolling around on the bed) - HEENT HEENT: Atraumatic, PERRL, EOMI, Moist mucous membranes - Neck Neck: Supple, no meningeal sign - Cardiac Cardiac: RRR, No murmur - Respiratory Respiratory: No respiratory distress, Clear bilaterally - Abdomen Abdomen: Soft, Non tender, Non distended - Back Back: No spinal TTP - Derm Derm: Normal color, Warm and dry, No rash - Extremities Extremities: No deformity, No edema, Other (Diffuse tenderness throughout extremities. Extremity size is symmetrical with regard to both upper and lower extremities.) - Neuro Neuro: Alert and oriented X 3 - Psych Psych: Normal mood, Normal affect Results - Vitals Vitals: Oxygen O2 Source Room air PD MEDICAL DECISION MAKING - ED course Complexity details: considered differential, d/w patient, d/w family ED course: The patient was treated symptomatically in the emergency department. She was having an exacerbation of pain that had been going on for over a month, and for which she had already seen her primary care physician. I discussed with her that she is going to have to give the gabapentin more time to be effective. I have treated her symptomatically here, but I am not going to add any further medication to her regimen from the emergency department, as she is just seen her primary care physician earlier today. We have discussed home management of the symptoms, as well as the usual indications for return. Departure - Departure Disposition: 01 Home, Self Care Clinical Impression: Body aches Condition: Stable Instructions: ED Muscle Aching Comments: You have been treated with pain medication tonight in the emergency department. You should for now continue the medication that you were just prescribed by your primary care physician today. It is best not to add to these medications because they have just been prescribed and most likely will work if given time to do so. If you do not find that the medications are giving you relief after a week, then you will need to follow-up with your primary care physician to determine what changes ought to be made, if any. Discharge Date/Time: 02/01/20 02:04
[2020-02-01 02:06] VITALS: BP 168/95
== END 2020-02-01 02:04 | disposition home or self-care (01) ==
LOC: ED 00:33
DX: R52 Pain, unspecified (principal); I48.91 Unspecified atrial fibrillation; E11.9 Type 2 diabetes mellitus without complications; Z79.84 Long term (current) use of oral hypoglycemic drugs; F17.200 Nicotine dependence, unspecified, uncomplicated
CPT/HCPCS: 96372; 99282; 99283; J1170

== ENCOUNTER 2020-02-11 08:29 | Outpatient (CLI) | payer MEDICARE, OTHER ==
--- NOTE | 2020-02-11 11:20 | XRAY Report ---
PROCEDURE: Cervical Spine Complete INDICATIONS: R25.2 CRAMP ANS SPASM TECHNIQUE: 5 view(s) of the cervical spine were acquired. COMPARISON: None. FINDINGS: Bones: No fractures or dislocations to the T1 level. The lateral masses of C1 appear intact on the odontoid view. No suspicious bony lesions. Mild C3 5-C6 and C6-7 C7 degenerative disc disease. Mild C3-C4, C4-C5, C5-C6 and C6-C7 facet hypertrophy. Mild left C5-C6 and C6-C7 neural foraminal narrowin g. Mild right C2-C3, C3-C4, C4-C5 and C5-C6 neural foraminal narrowing. Soft tissues: No prevertebral soft tissue swelling. IMPRESSION: 1. Multilevel degenerative disease. 2. Multilevel facet arthropathy. 3. Mild multilevel neural foraminal narrowing. 4. No fracture. No acute osseous lesion. If there is continued clinical concern for pathology, then M RI should be considered for further evaluation. Reviewed by: Jennifer Davidson MD, PhD on 02/11/2020 11:18 AM PDT Approved by: Jennifer Davidson MD, PhD on 02/11/2020 11:18 AM PDT Station ID: [id number]
== END 2020-02-11 08:30 | disposition home or self-care (01) ==
LOC: DI.S 08:29
PROVIDERS: ATTEND Nurse Practitioner Family
DX: M50.31 Other cervical disc degeneration, high cervical region (principal); M47.812 Spondylosis without myelopathy or radiculopathy, cervical region; M48.02 Spinal stenosis, cervical region
CPT/HCPCS: 72050

== ENCOUNTER 2020-02-16 08:10 | Outpatient (CLI) | payer MEDICARE, OTHER ==
--- NOTE | 2020-02-19 12:11 | Ultrasound Report ---
PROCEDURE: Aorta Screening INDICATIONS: AAA TECHNIQUE: Real time scanning was performed of the aorta and iliac arteries, with image documentatio n. COMPARISON: None available through the region FINDINGS: Aorta: Proximal aortic diameter measures 2.8 x 2.8 cm. There is a mid aortic fusiform aneurysm seen that measures 3.5 to 3.8 cm in greatest AP dimension, wi th a transverse extent of 4.1 cm. The distal aortic diameter is 2.6 x 2.9 cm. Iliac arteries: Right common iliac artery measures 1.4 x 1.6 cm. Left common iliac artery measures 1.1 x 1 cm. This study is limited by body habitus. 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 Reviewed by: Tom Reynolds MD on 02/16/2020 9:57 AM CLAUDE Approved by: Tom Reynolds MD on 02/16/2020 9:57 AM CLAUDE Station ID: [id number]
== END 2020-02-16 08:11 | disposition home or self-care (01) ==
LOC: DI 08:10
PROVIDERS: ATTEND Nurse Practitioner Family
DX: I71.4 Abdominal aortic aneurysm, without rupture (principal); R25.2 Cramp and spasm
CPT/HCPCS: 76706

== ENCOUNTER 2020-05-26 09:37 | Emergency (ER) | payer MEDICARE, OTHER ==
--- NOTE | 2020-05-26 10:30 | ED Physician Documentation ---
PD HPI HEAD INJURY - Stated complaint Stated Complaint: LT EYE INJURY - Chief complaint Chief Complaint: Trauma Hd/Nk - History obtained from History obtained from: Patient - Additional information Additional information: Patient comes emergency department chief complaint of ground-level fall and head injury. Patient states that she was getting out of bed and normally, she has a chair next to her bed to hold onto and help steady herself that she gets up. She states that the chair was not there and that when she reached for it as she got up, there was nothing to grab onto. She also normally has a salt lamp on in her room, but this was not on this morning when this happened. Patient states it was dark and she fell to the floor. Patient states the floor is hardwood. She called for her and then remembered he was in [place]. She had struck her head on the floor and is not sure if she lost consciousness. She denies initially feeling any pain anywhere else, although now she is starting to feel a little bit of right hip pain with movement. Patient was able to get up and ambulate after the event. Patient noticed that over the course the morning, her left periorbital tissues became increasingly swollen, and this is what has brought her to the emergency department. She states she cannot open her eye because of the swelling of the eyelid. No neck pain. No back pain. No rib pain. Review of Systems Ten Systems: 10 systems reviewed and negative Constitutional: reports: Reviewed and negative Eyes: reports: Reviewed and negative Ears: reports: Reviewed and negative Nose: reports: Reviewed and negative Throat: reports: Reviewed and negative Cardiac: reports: Reviewed and negative Respiratory: reports: Reviewed and negative GI: reports: Reviewed and negative : reports: Reviewed and negative Skin: reports: Reviewed and negative Musculoskeletal: reports: Joint pain Neurologic: reports: Head injury Psychiatric: reports: Reviewed and negative Endocrine: reports: Reviewed and negative Immunocompromised: reports: Reviewed and negative PD PAST MEDICAL HISTORY - Past Medical History Past Medical History: Yes Cardiovascular: High cholesterol, Atrial fibrillation Respiratory: None Neuro: None Endocrine/Autoimmune: Type 2 diabetes GI: None : None HEENT: None Psych: None Musculoskeletal: Osteoarthritis Derm: None - Past Surgical History Past Surgical History: Yes General: Cholecystectomy Ortho: 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 Cardiovascular: Coronary stent - Present Medications Home Medications: Ambulatory Orders Medication Instructions Recorded Confirmed Atorvastatin [Lipitor] 80 mg PO DAILY 08/09/18 05/26/20 Propranolol HCl [Innopran Xl] 80 mg PO DAILY 08/09/18 05/26/20 metFORMIN [Glucophage] 500 mg PO BIDWM 08/09/18 05/26/20 Benzonatate 100 mg PO DAILY 01/25/20 05/26/20 Lisinopril [Prinivil] 5 mg PO DAILY 01/25/20 05/26/20 Magnesium Oxide 400 mg PO DAILY 01/25/20 05/26/20 Amitriptyline [Elavil] 75 mg PO DAILY 05/26/20 05/26/20 Clopidogrel [Plavix] 75 mg PO DAILY 05/26/20 05/26/20 Gabapentin [Neurontin] 600 mg PO TID 05/26/20 05/26/20 Metoprolol Succinate [Kapspargo 25 mg PO DAILY 05/26/20 05/26/20 Sprinkle] Nitroglycerin [Nitrostat] 0.4 mg .ROUTE PRN PRN 05/26/20 05/26/20 - Allergies Allergies/Adverse Reactions: Allergies Allergy/AdvReac Type Severity Reaction Status Date / Time erythromycin base Allergy Hives Verified 05/26/20 09:50 Sulfa (Sulfonamide Allergy Unknown Verified 05/26/20 09:50 Antibiotics) codeine AdvReac Nausea Verified 05/26/20 09:50 meperidine [From Demerol] AdvReac Nausea Verified 05/26/20 09:50 oxycodone AdvReac Nausea Verified 05/26/20 09:50 propoxyphene [From Darvon] AdvReac Unknown Verified 05/26/20 09:50 - Social History Does the pt smoke?: Yes Smoking Status: Current every day smoker Does the pt have substance abuse?: No Substance Use and Type: CBD oil / Products - Immunizations Immunizations are current?: Yes - POLST Patient has POLST: No PD ED PE NORMAL - Vitals Vital signs reviewed: Yes - General General: Alert and oriented X 3, No acute distress, Well developed/nourished - HEENT HEENT: PERRL, Moist mucous membranes, Other (Left eye exam somewhat limited secondary to significant hematoma, edema, and contusion of the left upper eyelid and periorbital tissues. However, from what can be seen in the eye, there is no hyphema, subconjunctival hemorrhage, or compromise of extraocular muscle function.) - Neck Neck: Supple, no meningeal sign, No bony TTP - Cardiac Cardiac: RRR, No murmur - Respiratory Respiratory: No respiratory distress, Clear bilaterally - Abdomen Abdomen: Soft, Non tender, Non distended - Back Back: No spinal TTP - Derm Derm: Normal color, Warm and dry, No rash - Extremities Extremities: No deformity, No edema, No calf tenderness / cord, Other (tenderness R hip posteriorly. No shortening or rotation.) - Neuro Neuro: Alert and oriented X 3, [place] 2-12 intact, No motor deficit, No sensory deficit, Normal speech - Psych Psych: Normal mood, Normal affect Results - Vitals Vitals: Oxygen O2 Source Room air - Rads (name of study) CT head Radiology: Final report received, EMP read indepedently, See rad report (neg) R hip/pelvis XR Radiology: Final report received, EMP read indepedently, See rad report (neg) PD MEDICAL DECISION MAKING - ED course Complexity details: reviewed results, re-evaluated patient, considered differential, d/w patient ED course: Patient was fairly well-appearing overall, but I did work her up with CT scan of the head, as well as right hip and pelvis x-ray, both of which were negative. The pt was Charge. We have discussed home management of the symptoms, as well as the usual indications for return. Departure - Departure Disposition: 01 Home, Self Care Clinical Impression: Periorbital contusion of left eye Qualifiers: Encounter type: initial encounter Qualified Code(s): S05.12XA - Contusion of eyeball and orbital tissues, left eye, initial encounter Closed head injury Qualifiers: Encounter type: initial encounter Qualified Code(s): S09.90XA - Unspecified injury of head, initial encounter Contusion of hip, right Qualifiers: Encounter type: initial encounter Qualified Code(s): S70.01XA - Contusion of right hip, initial encounter Condition: Stable Instructions: Black Eye, ED Head Injury Closed Comments: Your CT scan and x-ray look good. Please apply ice packs for 20 to 30 minutes at a time, several times a day at least, to help bring down the swelling of your left eyelid. The eye appears to be in good condition, and does not appear to have been injured. Pulling will come down over the next several days to a week, though you will most likely have bruising for a few weeks on your face. This will most likely be driving down by gravity, so do not be surprised if you notice bruising tracking down the entire length of your face on the left. Please continue your home medications, as usual. Please follow up with your doctor for any further concerns. Discharge Date/Time: 05/26/20 11:41
--- NOTE | 2020-05-26 10:50 | XRAY Report ---
PROCEDURE: Hip w/Pelvis 2-3V RT INDICATIONS: fall/pain TECHNIQUE: AP pelvis with lateral view(s) of the right hip(s). COMPARISON: None. FINDINGS: Bones: No fractures or dislocations. Pelvic ring appears intact. No suspicious bony lesions. Mild bilateral hip osteoarthritis. Soft tissues: The visualized bowel gas pattern is normal. No suspicious soft tissue calcifications. IMPRESSION: No fracture. No acute osseous lesion. If there are persistent symptoms or continued clinical concern for pathology, then repeat plain film radiographs (7-10 days) or advanced imaging (CT, MR, bone scan) should be considered for further evaluation. Reviewed by: Jennifer Davidson MD, PhD on 05/26/2020 10:48 AM PST Approved by: Jennifer Davidson MD, PhD on 05/26/2020 10:[address] [facility] Station ID: [id number]
--- NOTE | 2020-05-26 10:54 | CT Report ---
PROCEDURE: HEAD WO INDICATIONS: head injury/contusion TECHNIQUE: Noncontrast 4.5 mm thick angled axial sections acquired from the foramen magnum to the vertex. For r adiation dose reduction, the following was used: automated exposure control, adjustment of mA and/or kV according to patient size. COMPARISON: None FINDINGS: Image quality: Excellent. CSF spaces: Basal cisterns are patent. No extra-axial fluid collections. The ventricles are symmet rosi in size and shape. Brain: No intracranial bleeds or masses. There is cerebral volume loss for age, with resultant vent ricular and sulcal prominence. There are periventricular and deep white matter chronic small vessel ischemic changes. There is intracranial internal carotid artery atherosclerosis. Skull and face: Calvarium and visualized facial bones appear intact, without suspicious lesions. Lar ge left periorbital facial soft tissue hematoma. No retrobulbar left orbit hemorrhage or fluid. Sinuses: Visualized sinuses and mastoids are clear. IMPRESSION: No acute intracranial disease process. Reviewed by: Jennifer Davidson MD, PhD on 05/26/2020 10:52 AM PST Approved by: Jennifer Davidson MD, PhD on 05/26/2020 10:52 AM PST Station ID: [id number]
[2020-05-26 11:35] VITALS: BP 114/71
== END 2020-05-26 11:41 | disposition home or self-care (01) ==
LOC: ED 09:37
DX: S05.12XA Contusion of eyeball and orbital tissues, left eye, initial encounter (principal); S09.90XA Unspecified injury of head, initial encounter; S70.01XA Contusion of right hip, initial encounter; E11.9 Type 2 diabetes mellitus without complications; F17.200 Nicotine dependence, unspecified, uncomplicated; Z79.84 Long term (current) use of oral hypoglycemic drugs
CPT/HCPCS: 99284

== ENCOUNTER 2021-03-10 09:45 | Outpatient (CLI) | payer MEDICARE, OTHER | END 2021-03-10 23:59 | disposition home or self-care (01) | LOC: LAB.S 09:45 | PROVIDERS: ATTEND Emergency Medicine | DX: L08.9 Local infection of the skin and subcutaneous tissue, unspecified (principal) | CPT/HCPCS: 87070; 87205 ==

== ENCOUNTER 2021-03-23 09:03 | Outpatient (CLI) | payer MEDICARE, OTHER ==
--- NOTE | 2021-03-23 12:22 | XRAY Report ---
PROCEDURE: Facial Bones Complete INDICATIONS: POSSIBLE NOSE BREAK TECHNIQUE: 5 views of the facial bones were acquired. COMPARISON: None FINDINGS: Sinuses: Visualized sinuses demonstrate no air-fluid levels or mucosal thickening. Bones: No fractures. No suspicious bony lesions. Orbital rims and zygomatic arches appear intact. Patient is edentulous. Cervical spine degenerative disc disease and facet arthropathy noted. Soft tissues: No suspicious soft tissue densities. Left thalamic neurostimulator leads noted. IMPRESSION: Nondisplaced nasal bone fracture. No osseous lesion. If there are persistent symptoms or continued cl inical concern for pathology, then CT scan should be considered for further evaluation. Reviewed by: Jennifer Davidson MD, PhD on 03/23/2021 12:20 PM PST Approved by: Jennifer Davidson MD, PhD on 03/23/2021 12:20 PM PST Station ID: [id number]
== END 2021-03-23 09:04 | disposition home or self-care (01) ==
LOC: DI.S 09:03
PROVIDERS: ATTEND Nurse Practitioner Family
DX: S02.2XXA Fracture of nasal bones, initial encounter for closed fracture (principal)

== ENCOUNTER 2021-06-12 09:50 | Outpatient (CLI) | payer MEDICARE, OTHER ==
--- NOTE | 2021-06-12 12:03 | XRAY Report ---
PROCEDURE: Sacrum/Coccyx INDICATIONS: PAIN IN THE COCCYX TECHNIQUE: 3 views of the sacrum and coccyx acquired. COMPARISON: None FINDINGS: Bones: No fractures or dislocations. No suspicious bony lesions. Degenerative changes in the lower lumbar spine. Soft tissues: Visualized bowel gas pattern is normal. No suspicious soft tissue densities. IMPRESSION: No acute abnormality of the pelvis or hips. Reviewed by: Rob Barnett on 06/12/2021 12:01 PM PST Approved by: Rob Barnett on 06/12/2021 12:01 PM PST Station ID: [id number]
== END 2021-06-12 09:51 | disposition home or self-care (01) ==
LOC: DI.S 09:50
PROVIDERS: ATTEND Nurse Practitioner Family
DX: M53.3 Sacrococcygeal disorders, not elsewhere classified (principal)

== ENCOUNTER 2021-08-10 09:07 | Outpatient (CLI) | payer MEDICARE, OTHER ==
--- NOTE | 2021-08-10 20:44 | XRAY Report ---
PROCEDURE: Chest 2 View X-Ray INDICATIONS: PULMONARY FIBROSIS UNSPECIFIED TECHNIQUE: 2 view(s) of the chest. COMPARISON: CT chest 01/25/2020 FINDINGS: Surgical changes and devices: Pacemaker. Lungs and pleura: No pleural effusions or pneumothorax. Lungs are clear. Mediastinum: Mediastinal contours are normal. Heart size is enlarged. Bones and chest wall: No suspicious bony abnormalities. Soft tissues appear unremarkable. IMPRESSION: No acute pulmonary process. Reviewed by: Mable Finney MD on 08/10/2021 8:43 PM PDT Approved by: Mable Finney MD on 08/10/2021 8:43 PM PDT Station ID: [id number]
== END 2021-08-10 09:08 | disposition home or self-care (01) ==
LOC: DI 09:07
PROVIDERS: ATTEND Nurse Practitioner Family
DX: J84.10 Pulmonary fibrosis, unspecified (principal)

== ENCOUNTER 2021-08-12 20:01 | Outpatient (CLI) | payer MEDICARE, OTHER ==
--- NOTE | 2021-08-13 10:17 | Ultrasound Report ---
PROCEDURE: Abdomen Limited INDICATIONS: ELEVATED LIVER ENZYMES TECHNIQUE: Real-time focused scanning was performed of the abdomen, with image documentation. COMPARISON: None. FINDINGS: Increased hepatic parenchymal echogenicity with coarsened hepatic echotexture. No focal hepatic mass. No intrahepatic or extrahepatic biliary ductal dilatation. Cholecystectomy. Pancreas partially obscu red by bowel gas; visualized portions are normal. Right kidney unremarkable. IMPRESSION: Hepatic steatosis with coarsened hepatic echotexture suggesting steatohepatitis. Reviewed by: Yang Washington MD on 08/13/2021 10:15 AM PDT Approved by: Yang Washington MD on 08/13/2021 10:15 AM PDT Station ID: [id number]
== END 2021-08-12 20:02 | disposition home or self-care (01) ==
LOC: DI 20:01
PROVIDERS: ATTEND Nurse Practitioner Family
DX: R74.01 Elevation of levels of liver transaminase levels (principal); K76.0 Fatty (change of) liver, not elsewhere classified

== ENCOUNTER 2021-08-17 08:51 | Outpatient (CLI) | payer MEDICARE, OTHER ==
--- NOTE | 2021-08-17 12:19 | Ultrasound Report ---
PROCEDURE: Retroperitoneal Limited INDICATIONS: AAA, PULMOARY GRANULOMA TECHNIQUE: Real time scanning was performed of the aorta and iliac arteries, with image documentatio n. COMPARISON: Ultrasound aorta 02/16/2020 FINDINGS: Aorta: Proximal aortic diameter measures 2.6 x 2.4 cm. Mid-aorta measures 3.7 x 4.2 cm. Distal aor tic diameter is 2.6 x 2.1 cm. Iliac arteries: Right common iliac artery measures 1.0 x 1.2 cm. Left common iliac artery measures 1.1 x 1.1 cm. IMPRESSION: Fusiform infrarenal abdominal aortic aneurysm measures 4.2 cm in maximum diameter, compared to 4.1 cm on ultrasound from 08/12/2021. Recommend follow-up ultrasound in 12 months. Reviewed by: Jeremie Pabon MD on 08/17/2021 12:17 PM PDT Approved by: Jeremie Pabon MD on 08/17/2021 12:17 PM PDT Station ID: [id number]
== END 2021-08-17 08:52 | disposition home or self-care (01) ==
LOC: DI 08:51
PROVIDERS: ATTEND Nurse Practitioner Family
DX: I71.4 Abdominal aortic aneurysm, without rupture (principal); J84.10 Pulmonary fibrosis, unspecified

== ENCOUNTER 2021-08-22 22:35 | Emergency (ER) | payer MEDICARE, OTHER ==
[2021-08-22 23:13] LABS: BASOPHILS % (AUTO) 0.5 %; EOSINOPHILS # (AUTO) 0.4 10^3/uL (0.0-0.7); EOSINOPHILS % (AUTO) 6.9 %; HCT - HEMATOCRIT 38.1 % (37.0-47.0); HGB - HEMOGLOBIN 12.2 g/dL (12.0-16.0); LYMPHOCYTES # (AUTO) 1.9 10^3/uL (1.5-3.5); MEAN CORPUSCULAR HEMOGLOBIN 28.6 pg (27.0-31.0); MEAN CORPUSCULAR VOLUME 89.2 fL (81.0-99.0); MEAN PLATELET VOLUME 10.4 fL (7.9-10.8); MONOCYTES # (AUTO) 0.5 10^3/uL (0.0-1.0); MONOCYTES % (AUTO) 8.9 %; NEUTROPHILS # (AUTO) 3.2 10^3/uL (1.5-6.6); NEUTROPHILS % (AUTO) 52.4 %; PLT - PLATELET COUNT 177 10^3/uL (130-450); RED BLOOD COUNT 4.27 10^6/uL (4.20-5.40); RED CELL DISTRIBUTION WIDTH 15.5 % (12.0-15.0); WHITE BLOOD COUNT 6.1 x10^3/uL (4.8-10.8)
[2021-08-22 23:25] LABS: ALBUMIN 3.4 g/dL (3.2-5.5); BILIRUBIN,TOTAL 0.4 mg/dL (0.2-1.0); CALCIUM 9.1 mg/dL (8.5-10.3); CREATININE 0.7 mg/dL (0.4-1.0); POTASSIUM 3.6 mmol/L (3.5-5.0); TOTAL PROTEIN 6.8 g/dL (6.7-8.2)
--- NOTE | 2021-08-22 23:54 | ED Physician Documentation ---
History of Present Illness - Stated complaint Stated Complaint: NAUSEA/BODY PX/CP/DIZZY - Chief complaint Chief Complaint: Cardiac - History obtained from History obtained from: Patient, Family ( of patient) - History of Present Illness Timing: Enter time (19:00), Today Pain level now: 9 Radiates to: RUE Improved by: no ameliorating factors Worsened by: no exacerbating factors Associated symptoms: dizziness/lightheadedness - Additonal information Additional information: c/o sudden onset chest pain and RUE pain, onset at approximately 7 PM tonight. Onset was while standing when she bent forward and had sudden onset dizziness/lightheadedness, and the midline chest pain radiating to RUE. Since that time the symptoms have been episodic without apparent exacerbating/ameliorating factors. Medical history includes tremors for which she has had an electrical stimulator placed; she had an initial procedure on left side of her brain approximately 8 months ago and had the same procedure on the right side 3 days ago. The surgeries were performed at [facility]. She also has h/o NSTEMI in January 2020, transferred from [facility] to [facility] and the outcome of that inpatient stay involved placement of 2 coronary artery stents. Patient says the pain she is having now feels similar to the pain she had on the visit that led to the stent placement. She describes the chest pain as feeling "like someone standing on my chest" Review of Systems Constitutional: reports: Reviewed and negative Eyes: reports: Reviewed and negative Ears: reports: Reviewed and negative Nose: reports: Reviewed and negative Throat: reports: Reviewed and negative Cardiac: reports: Chest pain / pressure, Palpitations. denies: Pedal edema Respiratory: reports: Reviewed and negative GI: reports: Reviewed and negative : denies: Dysuria, Frequency Skin: reports: Reviewed and negative Musculoskeletal: reports: Reviewed and negative Neurologic: denies: Generalized weakness, Focal weakness, Numbness, Altered men mor status, Headache PD PAST MEDICAL HISTORY - Past Medical History Cardiovascular: High cholesterol, Atrial fibrillation Respiratory: None Neuro: None Endocrine/Autoimmune: Type 2 diabetes GI: None : None HEENT: None Psych: None Musculoskeletal: Osteoarthritis Derm: None - Past Surgical History Past Surgical History: Yes General: Cholecystectomy 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 Cardiovascular: Coronary stent - Present Medications Home Medications: Ambulatory Orders Medication Instructions Recorded Confirmed Atorvastatin [Lipitor] 40 mg PO DAILY 08/09/18 08/23/21 Propranolol HCl [Innopran Xl] 80 mg PO DAILY 08/09/18 08/23/21 metFORMIN [Glucophage] 500 mg PO BIDWM 08/09/18 08/23/21 lisinopriL [Prinivil] 5 mg PO BID 01/25/20 08/23/21 Amitriptyline [Elavil] 75 mg PO DAILY 05/26/20 08/23/21 Gabapentin [Neurontin] 600 mg PO TID 05/26/20 08/23/21 Nitroglycerin [Nitrostat] 0.4 mg .ROUTE PRN PRN 05/26/20 08/23/21 - Allergies Allergies/Adverse Reactions: Allergies Allergy/AdvReac Type Severity Reaction Status Date / Time erythromycin base Allergy Hives Verified 08/22/21 22:54 Sulfa (Sulfonamide Allergy Unknown Verified 08/22/21 22:54 Antibiotics) codeine AdvReac Nausea Verified 08/22/21 22:54 meperidine [From Demerol] AdvReac Nausea Verified 08/22/21 22:54 oxycodone AdvReac Nausea Verified 08/22/21 22:54 propoxyphene [From Darvon] AdvReac Unknown Verified 08/22/21 22:54 - Social History Does the pt smoke?: Yes Smoking Status: Current every day smoker Does the pt have substance abuse?: No - Immunizations Immunizations are current?: Yes - POLST Patient has POLST: No PD ED PE NORMAL - Vitals Vital signs reviewed: Yes - General General: Alert and oriented X 3, Well developed/nourished, Other (appears uncomfortable; appears to be in waxing / waxning painful discomfort) - HEENT HEENT: Moist mucous membranes - Neck Neck: Supple, no meningeal sign - Respiratory Respiratory: No respiratory distress, Clear bilaterally - Abdomen Abdomen: Soft, Non tender - Derm Derm: Normal color, Warm and dry - Extremities Extremities: No edema - Neuro Neuro: Alert and oriented X 3 PD ED PE EXPANDED - HEENT HEENT Visual: 1 - laceration (surgical incision site with tissue adhesive; no erythema, nontender, wound edges are well approximated) - Cardiac Cardiac: Tachy, Irregularly irregular Results - Vitals Vitals: Vital Signs - 24 hr 08/22/21 08/22/21 08/22/21 22:45 22:50 22:55 Temperature 36.4 C L 36.5 C Heart Rate 72 72 80 Respiratory 18 18 22 Rate Blood Pressure 92/65 92/65 92/65 O2 Saturation 94 94 96 08/22/21 08/22/21 08/23/21 23:25 23:30 00:00 Temperature Heart Rate 100 98 100 Respiratory 21 22 16 Rate Blood Pressure 117/71 118/68 117/71 O2 Saturation 96 98 97 08/23/21 08/23/21 08/23/21 00:10 00:33 00:53 Temperature Heart Rate 181 H 80 83 Respiratory 22 21 21 Rate Blood Pressure 127/69 124/61 124/61 O2 Saturation 94 98 95 08/23/21 08/23/21 08/23/21 01:10 01:25 01:30 Temperature 36.2 C L Heart Rate 81 85 82 Respiratory 18 15 16 Rate Blood Pressure 108/70 108/70 119/56 L O2 Saturation 94 95 96 08/23/21 08/23/21 08/23/21 02:00 03:14 04:00 Temperature 36.6 C Heart Rate 82 82 77 Respiratory 16 17 12 Rate Blood Pressure 97/61 100/50 L 103/56 L O2 Saturation 95 96 96 08/23/21 04:45 Temperature 36.5 C Heart Rate 76 Respiratory 15 Rate Blood Pressure 106/62 O2 Saturation 97 Oxygen O2 Source Room air - EKG (time done) 22:52 Rate: Rate (enter#) (92) Rhythm: NSR, Other (PAC) Friendly: Normal Intervals: Normal AK QRS: Normal Ischemia: Normal ST segments, Q waves (II, III, aVF) Other comments: Other comments (artifact V2 with lesser artifact in I, II, aVR, AVL) 00:15 Rate: Rate (enter#) (180) Rhythm: Atrial fibrillation Friendly: Normal Ischemia: ST depression (V3-V5), Q waves (II, III, aVF) Other comments: Other comments (artifact V2, lesser in I, II, aVL, aVR) 00:42 Rate: Rate (enter#) (83) Rhythm: NSR Friendly: Normal Intervals: Normal AK QRS: Normal Ischemia: Normal ST segments, Q waves (inferior leads) Other comments: Other comments (artifact V2, V3, lesser in I, aVL) - Labs Labs: Laboratory Tests 08/22/21 08/22/21 08/22/21 23:05 23:05 23:05 WBC 6.1 RBC 4.27 Hgb 12.2 Hct 38.1 MCV 89.2 MCH 28.6 MCHC 32.0 RDW 15.5 H Plt Count 177 MPV 10.4 Neut # (Auto) 3.2 Lymph # (Auto) 1.9 [place] # (Auto) 0.5 Eos # (Auto) 0.4 Baso # (Auto) 0.0 Absolute Nucleated RBC 0.00 Nucleated RBC % 0.0 Sodium 143 Potassium 3.6 Chloride 103 Carbon Dioxide 29 Anion Gap 11.0 BUN 16 Creatinine 0.7 Estimated GFR (MDRD) 82 L Glucose 132 H Calcium 9.1 Total Bilirubin 0.4 AST 24 ALT 21 Alkaline Phosphatase 161 H Troponin I High Sens 20.4 H* Total Protein 6.8 Albumin 3.4 Globulin 3.4 Albumin/Globulin Ratio 1.0 Lipase 36 Nasal Adenovirus (PCR) Nasal B. parapertussis DNA (PCR) Nasal Coronavir 229E PCR Nasal Coronavir HKU1 PCR Nasal Coronavir NL63 PCR Nasal Coronavir OC43 PCR Nasal Enterovir/Rhinovir PCR Nasal Influenza B PCR Nasal Influenza A PCR Nasal Parainfluen 1 PCR Nasal Parainfluen 2 PCR Nasal Parainfluen 3 PCR Nasal Parainfluen 4 PCR Nasal RSV (PCR) Nasal B.pertussis DNA PCR Nasal C.pneumoniae (PCR) Jarrod Human Metapneumo PCR Nasal M.pneumoniae (PCR) Nasal SARS-CoV-2 (PCR) 08/23/21 08/23/21 00:37 01:10 WBC RBC Hgb Hct MCV MCH MCHC RDW Plt Count MPV Neut # (Auto) Lymph # (Auto) [place] # (Auto) Eos # (Auto) Baso # (Auto) Absolute Nucleated RBC Nucleated RBC % Sodium Potassium Chloride Carbon Dioxide Anion Gap BUN Creatinine Estimated GFR (MDRD) Glucose Calcium Total Bilirubin AST ALT Alkaline Phosphatase Troponin I High Sens 18.1 H* Total Protein Albumin Globulin Albumin/Globulin Ratio Lipase Nasal Adenovirus (PCR) NOT DETECTED Nasal B. parapertussis DNA (PCR) NOT DETECTED Nasal Coronavir 229E PCR NOT DETECTED Nasal Coronavir HKU1 PCR NOT DETECTED Nasal Coronavir NL63 PCR NOT DETECTED Nasal Coronavir OC43 PCR NOT DETECTED Nasal Enterovir/Rhinovir PCR NOT DETECTED Nasal Influenza B PCR NOT DETECTED Nasal Influenza A PCR NOT DETECTED Nasal Parainfluen 1 PCR NOT DETECTED Nasal Parainfluen 2 PCR NOT DETECTED Nasal Parainfluen 3 PCR NOT DETECTED Nasal Parainfluen 4 PCR NOT DETECTED Nasal RSV (PCR) NOT DETECTED Nasal B.pertussis DNA PCR NOT DETECTED Nasal C.pneumoniae (PCR) NOT DETECTED Jarrod Human Metapneumo PCR NOT DETECTED Nasal M.pneumoniae (PCR) NOT DETECTED Nasal SARS-CoV-2 (PCR) NOT DETECTED - Rads (name of study) chest xray Radiology: Prelim report reviewed, See rad report PD MEDICAL DECISION MAKING - ED course Complexity details: reviewed old records, reviewed results, re-evaluated patient, considered differential, d/w patient ED course: presents with episodic lightheadedness, chest pain radiating to RUE since 7 PM. Her heart rate was as high as 200 on ekg monitor; I was in the room at the time and this correlated with palpable peripheral (radial) pulse. Her pain appeared to correlate well with heart rate. She is given 2mg IV morphine and 5mg IV lopressor and within a few minutes she suddenly converted to NSR (again, while I was in the room), and within the subsequent few minutes she reported her pain went from seven (of ten) down to zero. Her initial hs-cTn is minimally elevated with repeat still elevated although improved (20.4 decreasing to 18.1). While her heart rates were elevated and becoming increasingly elevated, she had increasingly frequent PVCs, eventually couplets and at one point had a 16-beat run of ventricular tachycardia. I discussed the case with Dr. Vazquez, cardiology educational manager at [facility] and he accepts patient for transfer to [facility]. Patient did not have any further tachycardia nor dysrythmia during ED stay although late in ED stay she had mild recurrence of RUE pain for which she is given another 2mg dose of IV morphine. - Critical Care Time(min): 45 Time Includes: Direct patient care, Review records, Reassess patient, Document care, Coordinate care, See progress note Data interpretation: See progress note Procedures included in critical care time: See progress note Procedures excluded from critical care time: EKG, See progress note Departure - Departure Disposition: 02 Transfer Acute Care Hosp Clinical Impression: Atrial fibrillation, rapid, Ventricular tachycardia seen on ekg monitor Chest pain Qualifiers: Chest pain type: unspecified Qualified Code(s): R07.9 - Chest pain, unspecified Condition: Stable Discharge Date/Time: 08/23/21 04:57
--- NOTE | 2021-08-22 23:59 | XRAY Report ---
PROCEDURE: Chest 1 View X-Ray INDICATIONS: Chest pain TECHNIQUE: One view of the chest was acquired. COMPARISON: CT chest 01/25/2020 and plain film reviewed. FINDINGS: Surgical changes and devices: Electronic control device with lead extending cephalad above the imagin g margin is noted overlying the left lateral mid chest.. Lungs and pleura: No pleural effusions or pneumothorax. Lungs are clear. Mediastinum: Mediastinal contours appear normal. Heart size is normal. Bones and chest wall: No suspicious bony lesions. Overlying soft tissues appear unremarkable. IMPRESSION: A source of chest pain is not found. Pneumonia is not found, CHF is not identified. Reviewed by: Torey Burns MD on 08/23/2021 12:01 AM PDT Approved by: Torey Burns MD on 08/23/2021 12:01 AM PDT Station ID: [id number]
[2021-08-23] MEDS ORDERED: MORPHINE 2 MG/ML CARPUJECT IVP STA ×2 (00:04→03:14)
[2021-08-23] MEDS ORDERED: diltiaZEM INJ 5 MG/ML VIAL IVP STA (00:08)
[2021-08-23] MEDS ORDERED: METOPROLOL 5 MG/5 ML VIAL IVP STA (00:09)
[2021-08-23] MEDS ORDERED: METOPROLOL 5 MG/5 ML VIAL IVP ONE (00:18)
[2021-08-23] MEDS ORDERED: NITROGLYCERIN 2% PASTE TOP STA (00:30)
[2021-08-23 02:07] LABS: B. PARAPERTUSSIS- RESP PCR PAN NOT DETECTED; B. PERTUSSIS- RESP PCR PANEL NOT DETECTED; C. PNEUMONIAE- RESP PCR PANEL NOT DETECTED; CORONAVIRUS 229E-RESP PCR NOT DETECTED; CORONAVIRUS HKU1-RESP PCR NOT DETECTED; CORONAVIRUS NL63-RESP PCR NOT DETECTED; CORONAVIRUS OC43-RESP PCR NOT DETECTED; HUMAN METAPNEUMOVIRUS NOT DETECTED; INFLUENZA A- RESP PCR PANEL NOT DETECTED; INFLUENZA B - RESP PCR PANEL NOT DETECTED; M. PNEUMONIAE- RESP PCR PANEL NOT DETECTED; PARAINFLUENZA VIRUS 1 NOT DETECTED; PARAINFLUENZA VIRUS 2 NOT DETECTED; PARAINFLUENZA VIRUS 3 NOT DETECTED; PARAINFLUENZA VIRUS 4 NOT DETECTED; RHINOVIRUS/ENTEROVIRUS NOT DETECTED; RSV- RESP PCR PANEL NOT DETECTED; SARS-CoV-2 -RESP PCR PANEL NOT DETECTED
[2021-08-23 04:55] VITALS: BP 106/62
== END 2021-08-23 04:57 | disposition short-term general hospital (02) ==
LOC: ED 22:35
DX: I48.91 Unspecified atrial fibrillation (principal); I47.2 Ventricular tachycardia; I20.0 Unstable angina; F17.200 Nicotine dependence, unspecified, uncomplicated; Z20.822 Contact with and (suspected) exposure to COVID-19
CPT/HCPCS: 36415; 71045; 80053; 83690; 84484; 85025; 87633; 93005; 96374; 96375; 96376; 99285; 99291; A9270

== ENCOUNTER 2022-03-19 14:12 | Outpatient (CLI) | payer MEDICARE, OTHER ==
--- NOTE | 2022-03-19 19:31 | DEXA Report ---
PROCEDURE: Dexa Spine and/or Hip INDICATIONS: POST MENOPAUSAL TECHNIQUE: Dual energy x-ray absorptiometry (DXA) was performed on a [employer] System. Regions measur ed are the AP Spine, femoral neck, and if needed forearm. COMPARISON: None. FINDINGS: Lumbar Spine: Bone Mineral Density 1.174 g/cm/cm,T score 0.0. Left Femoral Neck: Bone Mineral Density 0.811 g/cm/cm, T score -1.6. Left Hip: Bone Mineral Density 0.975 g/cm/cm,T score -0.3,. IMPRESSION: Normal bone mineral density. Patients with diagnosis of osteoporosis or osteopenia should have regular bone mineral density assess ment. For those eligible for Medicare, routine testing is allowed once every 2 years. Testing frequ ency can be increased for patients who have rapidly progressing disease or for those who are receivin g medical therapy to restore bone mass. Reviewed by: Yang Washington MD on 03/19/2022 7:30 PM PST Approved by: Yang Washington MD on 03/19/2022 7:30 PM PST Station ID: [id number]
== END 2022-03-19 14:13 | disposition home or self-care (01) ==
LOC: DI 14:12
PROVIDERS: ATTEND Nurse Practitioner Family
DX: Z78.0 Asymptomatic menopausal state (principal)

== ENCOUNTER 2022-11-11 18:29 | Outpatient (CLI) | payer MEDICARE, OTHER ==
--- NOTE | 2022-11-11 20:26 | Ultrasound Report ---
PROCEDURE: Retroperitoneal Limited INDICATIONS: AAA, FLANK PAIN TECHNIQUE: Real time scanning was performed of the aorta and iliac arteries, with image documentatio n. COMPARISON: Ultrasound aorta 08/17/2021 FINDINGS: Aorta: Proximal aortic diameter measures 2.8 x 2.5 cm. Mid-aorta measures 4.4 x 3.6 cm. Distal aor tic diameter is 2.7 x 2.4 cm. Iliac arteries: Right common iliac artery measures 1.7 x 1.8 cm. Left common iliac artery measures 1.0 x 1 point cm. IMPRESSION: Fusiform infrarenal abdominal aortic aneurysm again seen, mildly increased in size when compared to t he ultrasound from 08/17/2021, now measuring up to 4.4 cm in diameter. Recommend follow-up ultrasound i n 12 months. Reviewed by: Jeremie Pabon MD on 11/11/2022 8:24 PM PDT Approved by: Jeremie Pabon MD on 11/11/2022 8:24 PM PDT Station ID: [id number]
--- NOTE | 2022-11-12 17:08 | XRAY Report ---
PROCEDURE: Knee 3 View RT INDICATIONS: RIGHT KNEE PAIN TECHNIQUE: 3 views of the right knee(s) were acquired. COMPARISON: None. FINDINGS: Bones: No fractures or dislocations. No suspicious bony lesions. Moderate to severe medial as wel l as moderate lateral patellofemoral compartment narrowing. Particular osteophytes are present. No er osions. Soft tissues: Mild knee joint effusion. No suspicious soft tissue calcifications or masses. IMPRESSION: Tricompartmental arthritic change most severe medially. Reviewed by: Mable Finney MD on 11/12/2022 5:07 PM PDT Approved by: Mable Finney MD on 11/12/2022 5:07 PM PDT Station ID: [id number]
== END 2022-11-11 23:59 | disposition home or self-care (01) ==
LOC: DI 18:29
PROVIDERS: ATTEND Nurse Practitioner Family
DX: I71.40 Abdominal aortic aneurysm, without rupture, unspecified (principal); M17.11 Unilateral primary osteoarthritis, right knee

== ENCOUNTER 2022-11-22 09:35 | Outpatient (CLI) | payer MEDICARE, OTHER ==
[2022-11-22 10:00] LABS: ALBUMIN 3.9 g/dL (3.2-5.5); ALBUMIN/GLOBULIN RATIO 1.3 (1.0-2.2); BILIRUBIN,TOTAL 0.4 mg/dL (0.2-1.0); CALCIUM 9.4 mg/dL (8.5-10.3); CREATININE 0.9 mg/dL (0.6-1.3); TOTAL PROTEIN 6.9 g/dL (6.4-8.9)
== END 2022-11-22 09:36 | disposition home or self-care (01) ==
LOC: LAB 09:35
PROVIDERS: ATTEND Nurse Practitioner Family
DX: R10.9 Unspecified abdominal pain (principal)
CPT/HCPCS: 36415; 80053

== ENCOUNTER 2022-11-22 09:36 | Outpatient (CLI) | payer MEDICARE, OTHER ==
[2022-11-22] MEDS ORDERED: BARIUM SULFATE 450 ML BOTTLE PO ONE (10:31)
[2022-11-22] MEDS ORDERED: iohexoL-300 100 ML VIAL IVP ONE (11:45)
--- NOTE | 2022-11-22 17:33 | CT Report ---
PROCEDURE: ABDOMEN/PELVIS W INDICATIONS: ABD PAIN CONTRAST: 100ml omni 300 TECHNIQUE: After the administration of intravenous contrast, 5 mm thick sections acquired from the diaphragms to the symphysis. 5 mm thick coronal and sagittal reformats were acquired. For radiation dose reducti on, the following was used: automated exposure control, adjustment of mA and/or kV according to bayron ent size. COMPARISON: Ultrasound retroperitoneum, 11/11/2022. Ultrasound abdomen limited, 08/12/2021 FINDINGS: Image quality: Excellent. Lung bases and heart: Right middle lobe and lingula scars and atelectasis. Small hiatal hernia. Liver: Mild hepatomegaly and hepatic steatosis No solid mass. Gallbladder and biliary tree: Surgically absent. Spleen: Normal size. There is a hypodensity in the inferior aspect of the spleen, most likely seconda ry to splenic infarct.. Pancreas: No pancreatic ductal dilation. Adrenals: No adrenal nodule. Kidneys and ureters: No hydronephrosis. No renal cystic lesion which requires follow up. No solid mas s. There is a 4 cm simple cyst in the superior pole of the left kidney Bowel and peritoneum: Mild gastric antral thickening thickening of duodenum. No bowel distension. No pathologic free fluid. Lymph nodes: No central or retroperitoneal adenopathy. Vessels: There is infrarenal aortic aneurysm measuring 4 cm in diameter. Severe atherosclerotic calci fications. PELVIS Reproductive organs: Uterus is absent. Ovaries are not visualized. No adnexal mass. No free fluid in pelvis.. Bladder: No abnormal wall thickening, accounting for underdistension. Pelvic lymph nodes: No pelvic adenopathy by size criteria. Bones: No aggressive osseous abnormality. [id number] degenerative changes in lumbar spine. Other: No significant ventral or inguinal hernia. IMPRESSION: 1. Mild gastric antral thickening and thickening of the duodenum, which mild gastritis/duodenitis or caused by artifact from inadequate distention. 2. Hepatomegaly and hepatic steatosis. 3. There is a triangular-shaped hypodensity in spleen, suspicious for splenic infarct. 4. Infrarenal abdominal aortic aneurysm measuring 4 cm. 5. Small hiatal hernia. 6. Severe atherosclerosis. Reviewed by: Becca Hernandez MD on 11/22/2022 5:32 PM PDT Approved by: Becca Hernandez MD on 11/22/2022 5:32 PM PDT Station ID: [id number]
== END 2022-11-22 09:37 | disposition home or self-care (01) ==
LOC: DI 09:36
PROVIDERS: ATTEND Nurse Practitioner Family
DX: K76.0 Fatty (change of) liver, not elsewhere classified (principal); R16.0 Hepatomegaly, not elsewhere classified; R93.5 Abnormal findings on diagnostic imaging of other abdominal regions, including retroperitoneum; I71.43 Infrarenal abdominal aortic aneurysm, without rupture; K44.9 Diaphragmatic hernia without obstruction or gangrene; I70.90 Unspecified atherosclerosis; R10.9 Unspecified abdominal pain
CPT/HCPCS: 36415; 74177; 80053; A9270; Q9967

== ENCOUNTER 2023-05-03 06:43 | Outpatient (CLI) | payer MEDICARE, OTHER ==
--- NOTE | 2023-05-03 19:27 | Ultrasound Report ---
PROCEDURE: Renal Ltd (Retroperitoneal Ltd INDICATIONS: AAA TECHNIQUE: Real-time scanning was performed of the retroperitoneal organs, with image documentation. COMPARISON: None. FINDINGS: Proximal mid and distal aorta measure 2.6 x 2.5 cm, 3.7 x 4.2 cm and 2.6 x 2.4 cm respectively. Right and left common iliac arteries measure 1.3 x 1.4 cm and 1.3 x 1.3 cm. Calcified aortic plaque is present throughout the aorta. IMPRESSION: No aneurysmal dilation. Reviewed by: Mable Finney MD on 05/03/2023 7:26 PM PST Approved by: Mable Finney MD on 05/03/2023 7:26 PM PST Station ID: [id number]
== END 2023-05-03 06:44 | disposition home or self-care (01) ==
LOC: DI 06:43
PROVIDERS: ATTEND Nurse Practitioner Family
DX: I71.40 Abdominal aortic aneurysm, without rupture, unspecified (principal)